=== PATIENT | male | born 1950 | race Caucasian/White ===

== ENCOUNTER → 2016-09-16 | Outpatient (CLI) | payer BC ==
[~2016-09-16] MED LIST: ACET-1256 PO; ADVIN25/60 INH; ALBU1AER9 INH; ATOR10TA88 PO; CHOL20005 PO; LISI-729 PO; METF750T PO; TEST5GEL TOP; TPRSR50 PO; TRIA75TA53 PO; VNTHFA/IN INH
[2016-09-16 12:58] LABS: BASO % 0.3 %; BASO ABS # 0.02 K/uL (0-0.2); COMPLETE YES; EOS % 5.6 %; HEMATOCRIT 50.3 % (42-52); IG% 0.2 %; LYMPH % 34.2 %; LYMPH ABS # 2.01 K/uL (1.2-3.4); MEAN CELL VOLUME 96.7 fL (80-100); MEAN CORPUSCULAR HEMOGLOBIN 32.7 pg (25-34); MEAN CORPUSCULAR HGB CONC 33.8 g/dl (32-36); MEAN PLATELET VOLUME 9.8 fL (7.4-10.4); MONO % 9.7 %; PLATELET COUNT 158 K/uL (130-400); WHITE BLOOD COUNT 5.88 K/uL (4.8-10.8)
[2016-09-16 13:30] LABS: ALT/SGPT 29 U/L (12-78); AST/SGOT 22 U/L (15-37); BLOOD UREA NITROGEN 15 mg/dl (7-18); BUN/CREATININE RATIO 13.8 (10-20); CALCIUM 8.7 mg/dl (8.5-10.1); CARBON DIOXIDE 27 mmol/L (21-32); CHLORIDE 105 mmol/L (98-107); GLUCOSE 144 mg/dl (70-99); POTASSIUM 4.2 mmol/L (3.5-5.1); SODIUM 139 mmol/L (136-145)
[2016-09-16 13:34] LABS: ALB/GLOB RATIO 0.8 (0.9-2); ALKALINE PHOSPHATASE 56 U/L (45-117); PROSTATE SPECIFIC ANTIGEN 0.264 ng/ml (0.000-4.000)
[2016-09-16 13:52] LABS: CALCIUM URINE 9.8 mg/dl
--- NOTE | 2016-09-23 06:14 | CODING QUERY MEDICAL NECESSITY ---
SUPPORTING DIAGNOSIS NEEDED A supporting diagnosis is required for the test/procedure performed on this patient in order for us to be reimbursed by the patient's insurance. Please provide a supporting diagnosis for the following test/procedure listed below next to the test name along with your signature. *If there is no additional diagnosis for this patient that would support the following test/procedure please document that below next to the test/procedure. Test(s)/Procedure(s) that require a supporting diagnosis: DOS 09/16 * PSA DIAGNOSIS: Provider Signature: Date: Thank you Noemi Julian Health Information Management Once completed, please kindly fax back to [phone] For questions please call [phone]
== END | disposition home or self-care (01) ==
LOC: C.LABPVFM 08:57
PROVIDERS: ATTEND Internal Medicine Endocrinology, Diabetes & Metabolism
DX: M81.0 Age-related osteoporosis without current pathological fracture (principal); E29.1 Testicular hypofunction; E55.9 Vitamin D deficiency, unspecified

== ENCOUNTER → 2016-09-22 | Outpatient (CLI) | payer BC | END | disposition home or self-care (01) | LOC: C.MAMM 14:18 | PROVIDERS: ATTEND Internal Medicine Endocrinology, Diabetes & Metabolism | DX: E55.9 Vitamin D deficiency, unspecified (principal); M81.0 Age-related osteoporosis without current pathological fracture ==

== ENCOUNTER → 2016-09-24 | Outpatient (CLI) | payer BC ==
--- NOTE | 2016-09-24 12:35 | MAMMOGRAPHY REPORT ---
MALE BILATERAL DIGITAL DIAGNOSTIC MAMMOGRAM WITH CAD: 09/24/2016 CLINICAL HISTORY: The patient reports that he is being seen for enlarged breasts, although he report s that his breast size is unchanged for years. He denies any palpable lumps, pain, or other complai nts. TECHNIQUE: Current study was also evaluated with a Computer Aided Detection (CAD) system. COMPARISON: Comparison is made to exams dated: 12/16/2006 and 12/16/2006. BREAST COMPOSITION: The tissue of both breasts is predominantly fatty. FINDINGS: There are no suspicious masses, calcifications, or areas of architectural distortion note d in either breast. Scattered bilateral benign-appearing calcifications are noted, predominantly de rmal in origin. The breasts are predominantly composed of fatty tissue (pseudo-gynecomastia), with a small amount of fibroglandular tissue seen within bilateral subareolar regions, consistent with gy necomastia. The appearance of both breasts is similar mammographically to the prior 2006 exam. IMPRESSION: ACR BI-RADS CATEGORY 2: BENIGN Bilateral breasts are predominantly composed of fatty tissue (pseudogynecomastia), with a small amou nt of fibroglandular tissue seen in bilateral subareolar regions (true gynecomastia). The appearanc e of both breasts is stable compared to the prior 2006 exam. There is no mammographic evidence of m alignancy. Recommend clinical follow-up. The patient has been verbally notified of the results. Approximately 10% of breast cancers are not detected with mammography. A negative mammographic repor t should not delay biopsy if a clinically suggestive mass is present. Irma Bundy M.D. ah/:09/24/2016 11:56:07 Franchise Sales Representative: Halle MCDOWELL(R)(M), [facility] letter sent: Normal 1/2 BI-RADS Code: ACR BI-RADS Category 2: Benign
== END | disposition home or self-care (01) ==
LOC: C.MAMM 10:54
PROVIDERS: ATTEND Internal Medicine Endocrinology, Diabetes & Metabolism
DX: N62 Hypertrophy of breast (principal)

== ENCOUNTER → 2017-02-02 | Outpatient (CLI) | payer BC ==
[2017-02-02 13:17] LABS: ALT/SGPT 35 U/L (12-78); AST/SGOT 35 U/L (15-37); BLOOD UREA NITROGEN 17 mg/dl (7-18); BUN/CREATININE RATIO 15.4 (10-20); CALCIUM 9.1 mg/dl (8.5-10.1); CARBON DIOXIDE 28 mmol/L (21-32); CHLORIDE 105 mmol/L (98-107); GLUCOSE 129 mg/dl (70-99); POTASSIUM 4.4 mmol/L (3.5-5.1); SODIUM 139 mmol/L (136-145)
[2017-02-02 13:21] LABS: ALB/GLOB RATIO 0.9 (0.9-2); ALKALINE PHOSPHATASE 63 U/L (45-117); CHOLESTEROL 153 mg/dl (0-200); CHOLESTEROL/HDL RATIO 3.1; HDL CHOLESTEROL 50 mg/dl; LDL CHOLESTEROL CALCULATED 82 mg/dl; TRIGLYCERIDES 106 mg/dl (0-150); VERY LOW DENSITY LIPOPROT CALC 21 mg/dl
[2017-02-02 13:29] LABS: ESTIMATED AVERAGE GLUCOSE 134 mg/dl; HA1C FLAG Normal (Normal)
[2017-02-02 13:40] LABS: RATIO 4.5 mcg/mg (0-30.0)
== END | disposition home or self-care (01) ==
LOC: C.LABPVFM 09:39
PROVIDERS: ATTEND Neuromusculoskeletal Medicine & OMM
DX: J45.909 Unspecified asthma, uncomplicated (principal); E29.1 Testicular hypofunction; E78.5 Hyperlipidemia, unspecified; I10 Essential (primary) hypertension; E55.9 Vitamin D deficiency, unspecified; E11.9 Type 2 diabetes mellitus without complications

== ENCOUNTER 2017-02-22 10:42 | Emergency (ER) | payer BC ==
[~2017-02-22] VITALS: Ht 170.2 cm; Wt 127.8 kg
[~2017-02-22 10:42] MED LIST changes: -ACET-1256 PO; -CHOL20005 PO; -METF750T PO; -TPRSR50 PO; -VNTHFA/IN INH
[2017-02-22 10:44] VITALS: TEMP 36.7; Ht 170.2 cm; Wt 127.8 kg
[2017-02-22] MEDS ORDERED: ACET-1256 PO (11:00)
--- NOTE | 2017-02-22 11:21 | EMERGENCY ROOM VISIT NOTE ---
ED Visit Note First contact with patient: 10:59 CHIEF COMPLAINT: Shoulder pain HISTORY OF PRESENT ILLNESS: This 66-year-old male patient presents to the emergency department, ambulatory, with his , complaining of pain in the left shoulder. The patient states he was clearing brush [place] campground yesterday, when he tripped over a tree limb. The patient states when he tripped , he fell and landed on his left shoulder. Patient states he fell forward, but landed right on the anterior, lateral shoulder. There is moderate limitation of motion of the arm at the shoulder joint because of the pain. The pain is moderate, constant and increases with motion of the hand and arm. The patient states the pain is burning/achy and 8/10. The patient has taken extra strength Tylenol, 1000 mg last night, and 1000 mg at 3 AM with moderate relief of the pain. No previous significant previous shoulder disease or injury. No numbness or tingling. no neck or back pain. The patient denies head injury. No chest pain or shortness of breath. No abdominal pain or nausea/vomiting. No cough. REVIEW OF SYSTEMS: A 6 system review of systems was performed with positives and pertinent negatives in the HPI. ALLERGIES: Aspirin MEDICATIONS: Albuterol, Advair, AndroGel, triamterene/HCTZ, atorvastatin, lisinopril PMH: Tension, asthma, hyperlipidemia, low testosterone SOCIAL HISTORY: The patient lives locally with his family. He denies drug, alcohol, tobacco use. PHYSICAL EXAM: Vital Signs: Reviewed nurse's notes, vital signs stable. GENERAL : This is a 66-year-old obese male, in no acute distress, but appears to be in pain, well-developed, well-nourished. MUSCULOSKELETAL: There is no deformity in the contour of the left shoulder and there are no jaylon deformities noted. There is no sulcus sign. There is tenderness over the left humeral head and proximal humerus, acromion and acromial end of the clavicle. The patient's range of motion is limited at the shoulder joint due to pain. Supraspinatus strength 3/5. No tenderness of the elbow, wrist, or hand. Sales Planning Manager strength 5/5. Radial pulse 2+. NECK: No tenderness to palpation over the cervical spine. Full active range of motion. HEART: Regular rate and rhythm without murmurs gallops or rubs. LUNGS: Clear to auscultation bilaterally without wheezes, rales or rhonchi. No accessory muscle use. No retractions. NEURO: The patient is alert and oriented to person, place, and time. Normal sensation to light and sharp touch. Capillary refill less than 2 seconds. RADIOLOGY: Left Shoulder X-Ray: DISCUSSION: The bones and joint spaces appear intact. There is no evidence of fracture, dislocation or bony disease. There is no evidence for soft tissue swelling. IMPRESSION: Negative study. EMERGENCY DEPARTMENT COURSE: I examined the patient. An X-ray of the left shoulder was reviewed by myself and radiologist and shows No acute fracture or dislocation. The patient was placed in an arm sling. Neurovascular status re- checked and in-tact. The patient was seen by Dr. Carty, who is in agreement with assessment and plan. The patient was discharged home in good condition. DIFFERENTIAL DIAGNOSIS: Shoulder dislocation, proximal humerus fracture, clavicle fracture, scapular fracture, rotator cuff strain, sprain, or tear, shoulder contusion, and others. DIAGNOSIS: Shoulder Contusion DISCHARGE INSTRUCTIONS & TREATMENT: ORTHOPEDIC INSTRUCTIONS: Ibuprofen(Motrin, Advil) may be used for fever or pain. Use 600mg every six hours as needed. Take with food. Avoid using more than 2400mg in a 24 hour period. Do not use 2400mg per day for more than three consecutive days without physician direction. Prolonged inappropriate use can lead to stomach upset or ulcers. (AND/OR) Acetaminophen(Tylenol) may be used for fever or pain. Use 1000mg every six to eight hours as needed. Avoid using more than 3000mg in a 24 hour period. Ice compresses for 20 minutes at a time four times daily for 2-3 days. Use the sling as instructed. Remove your arm from the sling 4-6 times a day and move all the joints around to keep them loose. Rest and elevate your injury. Return to the ER immediately for any numbness, tingling, severe pain, extreme swelling in the extremity or as needed. Call [facility], [phone], this week, to arrange follow up for your injury. Follow-up with your primary care physician in 2 to 3 days for a recheck of your current condition. Problem List Medical Problems: (1) Asthma Status: Chronic (2) History of nose surgery Status: Chronic Current/Historical Medications Scheduled Atorvastatin (Lipitor), 10 MG PO QAM Fluticasone Prop/Salmeterol (Advair Diskus 250/50 60 Dose), 1 PUFFS INH BID Lisinopril (Zestril), 5 MG PO QAM Testosterone (Androgel Pump), 40.5 MG TOP QAM Triamterene/Hctz (Maxzide 75MG/50MG), 1 TAB PO QAM Scheduled PRN Acetaminophen (Tylenol), 1,000 MG PO Q6 PRN for Pain Allergies Coded Allergies: Aspirin (Verified Allergy, Mild, BLEED, 02/22/17) Vital Signs Date Time Temp Pulse Resp B/P (MAP) Pulse Ox O2 Delivery O2 Flow Rate FiO2 02/22/17 12:08 80 20 145/88 99 02/22/17 10:44 36.7 82 16 126/63 96 Room Air Departure Information Impression Primary Impression: Shoulder contusion Dispostion Home / Self-Care Condition GOOD Referrals Trevon Arellano D.O. (PCP) Gordy Titpon MD Patient Instructions My [facility] Additional Instructions ORTHOPEDIC INSTRUCTIONS: Ibuprofen(Motrin, Advil) may be used for fever or pain. Use 600mg every six hours as needed. Take with food. Avoid using more than 2400mg in a 24 hour period. Do not use 2400mg per day for more than three consecutive days without physician direction. Prolonged inappropriate use can lead to stomach upset or ulcers. (AND/OR) Acetaminophen(Tylenol) may be used for fever or pain. Use 1000mg every six to eight hours as needed. Avoid using more than 3000mg in a 24 hour period. Ice compresses for 20 minutes at a time four times daily for 2-3 days. Use the sling as instructed. Remove your arm from the sling 4-6 times a day and move all the joints around to keep them loose. Rest and elevate your injury. Return to the ER immediately for any numbness, tingling, severe pain, extreme swelling in the extremity or as needed. Call [facility], [phone], this week, to arrange follow up for your injury. Follow-up with your primary care physician in 2 to 3 days for a recheck of your current condition. Problem Qualifiers Primary Impression: Shoulder contusion Encounter type: initial encounter Laterality: left Qualified Codes: S40.012A - Contusion of left shoulder, initial encounter
--- NOTE | 2017-02-22 11:37 | DIAGNOSTIC IMAGING REPORT ---
LEFT SHOULDER MIN 2 VIEWS ROUTINE CLINICAL HISTORY: left shoulder pain s/p fall on left side pain COMPARISON: None. DISCUSSION: The bones and joint spaces appear intact. There is no evidence of fracture, dislocation or bony disease. There is no evidence for soft tissue swelling. IMPRESSION: Negative study. The above report was generated using voice recognition software. It may contain grammatical, syntax or spelling errors. Electronically signed by: Robert Varghese M.D. 02/22/2017 11:35 AM Dictated Date/Time: 02/22/2017 11:35 AM
[2017-02-22 12:08] VITALS: BP 145/88; PULSE 80; O2SAT 99
--- NOTE | 2017-02-24 15:48 | EMERGENCY ROOM VISIT NOTE ---
ED Visit Note First contact with patient: 10:59 HPI: Left shoulder pain after fall. PE: AFVSS, NAD NC/AT RRR, no murmurs CTAB Abd soft NT/ND Ext: no edema, erythema, Left shoulder with ttp over AC joint. Active ROM limited 2/2 pain. Passive ROM less painful. Axillary nerve intact. Distal pms intact. Neuro: grossly intact Plan: Xray negative. Likely rotator cuff. Sling and ortho f/u. I reviewed the patient's past medical history, medications, and visit nursing notes. I discussed the case with the physician endodontic assistant, examined the patient, and agree with the findings and plan as documented in the physician assistants note. Problem List Medical Problems: (1) Asthma Status: Chronic (2) History of nose surgery Status: Chronic Current/Historical Medications Scheduled Atorvastatin (Lipitor), 10 MG PO QAM Fluticasone Prop/Salmeterol (Advair Diskus 250/50 60 Dose), 1 PUFFS INH BID Lisinopril (Zestril), 5 MG PO QAM Testosterone (Androgel Pump), 40.5 MG TOP QAM Triamterene/Hctz (Maxzide 75MG/50MG), 1 TAB PO QAM Scheduled PRN Acetaminophen (Tylenol), 1,000 MG PO Q6 PRN for Pain Allergies Coded Allergies: Aspirin (Verified Allergy, Mild, BLEED, 02/22/17) Vital Signs Date Time Temp Pulse Resp B/P (MAP) Pulse Ox O2 Delivery O2 Flow Rate FiO2 02/22/17 12:08 80 20 145/88 99 02/22/17 10:44 36.7 82 16 126/63 96 Room Air Departure Information Impression Primary Impression: Shoulder contusion Dispostion Home / Self-Care Condition GOOD Referrals Trevon Arellano D.O. (PCP) Gordy Tipton MD Forms HOME CARE DOCUMENTATION FORM, IMPORTANT VISIT INFORMATION Patient Instructions My [facility] Additional Instructions ORTHOPEDIC INSTRUCTIONS: Ibuprofen(Motrin, Advil) may be used for fever or pain. Use 600mg every six hours as needed. Take with food. Avoid using more than 2400mg in a 24 hour period. Do not use 2400mg per day for more than three consecutive days without physician direction. Prolonged inappropriate use can lead to stomach upset or ulcers. (AND/OR) Acetaminophen(Tylenol) may be used for fever or pain. Use 1000mg every six to eight hours as needed. Avoid using more than 3000mg in a 24 hour period. Ice compresses for 20 minutes at a time four times daily for 2-3 days. Use the sling as instructed. Remove your arm from the sling 4-6 times a day and move all the joints around to keep them loose. Rest and elevate your injury. Return to the ER immediately for any numbness, tingling, severe pain, extreme swelling in the extremity or as needed. Call [facility], [phone], this week, to arrange follow up for your injury. Follow-up with your primary care physician in 2 to 3 days for a recheck of your current condition.
[2017-03-24] MEDS ORDERED: VNTHFA/IN INH (08:59)
[2017-03-24] MEDS ORDERED: CHOL20005 PO (09:00)
[2017-03-24] MEDS ORDERED: METF750T PO (09:03)
[2017-04-27] MEDS ORDERED: TPRSR50 PO (10:19)
== END 2017-02-22 12:10 | disposition home or self-care (01) ==
LOC: C.EDB 10:44 → C.EDD 12:10
DX: S40.012A Contusion of left shoulder, initial encounter (principal); W01.0XXA Fall on same level from slipping, tripping and stumbling without subsequent striking against object, initial encounter; E78.5 Hyperlipidemia, unspecified; J45.909 Unspecified asthma, uncomplicated; Z79.899 Other long term (current) drug therapy; Z88.6 Allergy status to analgesic agent; Z98.890 Other specified postprocedural states

== ENCOUNTER → 2017-03-12 | Outpatient (CLI) | payer BC ==
[~2017-03-12] MED LIST changes: +ACET-1256 PO; -ALBU1AER9 INH; +CHOL20005 PO; +METF750T PO; +TPRSR50 PO; +VNTHFA/IN INH
--- NOTE | 2017-03-12 12:04 | DIAGNOSTIC IMAGING REPORT ---
LEFT SHOULDER MRI HISTORY: Left shoulder pain. TECHNIQUE: Multiplanar multisequence MRI of the left shoulder was performed without contrast. COMPARISON STUDY: Left shoulder 02/22/2017. FINDINGS: AC joint: Moderate AC joint arthrosis demonstrated by joint space narrowing and large marginal osteophytes. Rotator cuff: Complete full-thickness tears of the supraspinatus and infraspinatus tendons which demonstrate up to 2.5 cm of retraction. This results in the fluid within the subacromial/subdeltoid space. Thinning of the subscapularis tendon consistent with a partial tear. The teres minor tendon appears intact. There is mild atrophy of the supraspinatus and infraspinatus muscles. Labrum: Abnormal signal within the superior labrum consistent with a SLAP tear. Biceps tendon: Mild thickening and increased signal. This is consistent with a tendinopathy. There is mild medial deviation proximally which is likely due to the partial subscapularis tendon/transverse humeral ligament tear. Bones: No fracture or dislocation. Cartilage: Mild cartilage thinning within the humeral head. The glenoid cartilage appears intact. Miscellaneous: Trace joint effusion. There is edema and irregularity involving a few of the inferior glenohumeral ligament fibers posteriorly. This is consistent with a partial tear IMPRESSION: 1. Complete full-thickness tears with retraction of the supraspinatus and infraspinatus tendons. 2. SLAP tear. 3. Edema and irregularity involving a few of the inferior glenohumeral ligament fibers posteriorly. This is consistent with a partial tear (HAGL). 4. Proximal biceps tendinopathy. This also mild medial deviation of the proximal biceps tendon suggestive of partial tear of the subscapularis tendon/transverse humeral ligament. Electronically signed by: Corona Cabrera M.D. 03/12/2017 12:03 PM Dictated Date/Time: 03/12/2017 11:54 AM
== END | disposition home or self-care (01) ==
LOC: C.MRI 09:20
PROVIDERS: ATTEND Orthopaedic Surgery Sports Medicine
DX: M75.102 Unspecified rotator cuff tear or rupture of left shoulder, not specified as traumatic (principal); S43.432A Superior glenoid labrum lesion of left shoulder, initial encounter; X58.XXXA Exposure to other specified factors, initial encounter

== ENCOUNTER → 2017-04-23 | Outpatient (CLI) | payer BC ==
[2017-04-23 12:01] LABS: HEMATOCRIT 44.9 % (42-52); MEAN CELL VOLUME 96.1 fL (80-100); MEAN CORPUSCULAR HGB CONC 34.3 g/dl (32-36); MEAN PLATELET VOLUME 9.5 fL (7.4-10.4); PLATELET COUNT 154 K/uL (130-400); RED BLOOD COUNT 4.67 M/uL (4.7-6.1); WHITE BLOOD COUNT 5.62 K/uL (4.8-10.8)
[2017-04-23 12:11] LABS: INR 1.1 (0.9-1.1); PROTHROMBIN TIME (PATIENT) 11.6 SECONDS (9.0-12.0)
[2017-04-23 12:36] LABS: BLOOD UREA NITROGEN 17 mg/dl (7-18); BUN/CREATININE RATIO 15.8 (10-20); CALCIUM 9.6 mg/dl (8.5-10.1); CARBON DIOXIDE 26 mmol/L (21-32); CHLORIDE 105 mmol/L (98-107); GLUCOSE 132 mg/dl (70-99); POTASSIUM 4.5 mmol/L (3.5-5.1); SODIUM 138 mmol/L (136-145)
== END | disposition home or self-care (01) ==
LOC: C.LABPVFM 08:19
PROVIDERS: ATTEND Internal Medicine Cardiovascular Disease
DX: I42.9 Cardiomyopathy, unspecified (principal); R06.09 Other forms of dyspnea

== ENCOUNTER → 2017-04-27 | Day surgery (SDC) | payer BC ==
[~2017-04-27] VITALS: Ht 170.2 cm; Wt 128.0 kg
[~2017-04-27] MED LIST changes: +ACETAMINOPHEN 325 MG TAB PO PRN; +FENTANYL CITRATE INJ 50 MCG/1 ML 2 ML VIAL ONE; +HEPARIN SOD (PORCINE) 1000 UNIT/ML 10 ML VIAL ONE; +MIDAZOLAM HCL 1 MG/ML 2ML VIAL ONE; +NITROGLYCERIN/D5W 100MCG/ML 20ML SYR ONE; +NiCARDipine HCL INJ 2.5 MG/ML 10 ML AMP ONE; +ONDANSETRON INJ 2 MG/ML 2 ML VIAL IV PRN; +SODIUM CHLORIDE 0.9% 1000ML 1,000 ML IV SCH; +SODIUM CHLORIDE 0.9% 1000ML 250 ML IV PRN
[2017-04-27 07:10] VITALS: Ht 170.2 cm; Wt 128.0 kg
[2017-04-27 07:11] VITALS: BP 147/75; PULSE 83; TEMP 36.8; O2SAT 96
--- NOTE | 2017-04-27 07:42 | History & Physical Bridge Note ---
H&P Re-Evaluation Bridge Note: I have examined the patient, reviewed the History & Physical and in the interval since the performance of the History & Physical I have noted the following changes of clinical significance: No changes noted
--- NOTE | 2017-04-27 07:42 | Procedure Note ---
Pre-Mod Sedation Assessment General Date of Moderate Sedation: Apr 27, 2017. Vital Signs: Vital Signs Past 12 Hours Date Time Temp Pulse Resp B/P (MAP) Pulse Ox O2 Delivery O2 Flow Rate FiO2 04/27/17 07:11 36.8 83 18 147/75 96 Review Cardiovascular: regular rate, rhythm Abdomen: non tender, soft Lungs: lungs clear Pre-Sedation Airway Assessment Oral Cavity: Dentures Short Thick Neck: Yes Hx of Sleep Apnea: No Smoking Status: Never Smoker Procedure Planning Contraindications-for Mod Sed: None Yes Notes The planned sedation has been discussed with the patient and consent obtained. I have identified the patient, determined the appropriateness of sedation and have assessed the patient immediately prior to the procedure. All medicine(s) and interventions are by my order.
--- NOTE | 2017-04-27 09:49 | Procedure Note ---
Post-Mod Sedation Assessment General Date of Moderate Sedation Apr 27, 2017. Vital Signs: Vital Signs Past 12 Hours Date Time Temp Pulse Resp B/P (MAP) Pulse Ox O2 Delivery O2 Flow Rate FiO2 04/27/17 09:40 16 Room Air 04/27/17 09:35 16 Room Air 04/27/17 09:30 16 Room Air 04/27/17 09:25 70 16 153/93 (113) 96 Room Air 04/27/17 07:11 36.8 83 18 147/75 96 Review - Discharge Criteria Vital Signs Stable: Yes Alert/Oriented/Conversant: Yes Returned to Baseline Mental St: Yes Nausea Absent/Minimal: Yes Pain/Discomfort/Absent/Minimal: Yes Normal/Baseline Respirations: Yes Active Bleeding?: No
[2017-04-27 09:53] LABS: ISTAT ARTERIAL BLOOD GAS HCO3 28 meq/L (19-24); ISTAT ARTERIAL BLOOD GAS PCO2 51 mmHg (35-46); ISTAT ARTERIAL BLOOD GAS PO2 56 mmHg (80-95); ISTAT ARTERIAL BLOOD GAS pH 7.35 (7.35-7.45); ISTAT CARBON DIOXIDE 30 mEq/l (24-31)
[2017-04-27 09:53] LABS: ISTAT ARTERIAL BLOOD GAS HCO3 29 meq/L (19-24); ISTAT ARTERIAL BLOOD GAS PCO2 53 mmHg (35-46); ISTAT ARTERIAL BLOOD GAS PO2 39 mmHg (80-95); ISTAT ARTERIAL BLOOD GAS pH 7.35 (7.35-7.45); ISTAT CARBON DIOXIDE 31 mEq/l (24-31)
--- NOTE | 2017-04-27 10:11 | Cardiac Catheterization ---
Procedure Note Procedure Date Apr 27, 2017. Pre-Procedure Diagnosis Cardiomyopathy AUC Score 7 Post-Procedure Diagnosis Normal Coronary Arteries, Elevated Intracardiac Pressures Procedure(s) Performed Coronary Angiography, Left Heart Cath, Right Heart Cath, Aortography Supervisor Veneer Dr. Warren Senior Compliance Analyst(s) Bravo Estimated Blood Loss < 25 ml Medication(s) Fentanyl, Heparin, Nicardipine, Versed, Lidocaine 1% Summary of Findings Coronary angiography: 1. Left main coronary artery: The LMCA is short in length. No significant CAD visualized. 2. Left anterior descending: The LAD is a very large caliber vessel that wraps around the apex. It gives rise to a medium caliber diagonal vessel. No CAD noted within the LAD system. 3. Circumflex: The circumflex is large caliber and dominant. There is a very large caliber OM1 with lateral branch. There is a very large circumflex PDA. Medium caliber posterior lateral branch. No CAD noted within the circumflex or PDA system. 4. Ramus intermedius: Small to medium caliber ramus intermedius without CAD. 5. 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 Selective coronary angiography was not performed. Non dominant vessel. RCA was visualized during aortography. JR4, AR2, a L2 catheters were unsuccessful in engaging the RCA. Aortography: 1. Aortography (supravalvular) was performed to identify the right coronary artery. The RCA appeared to originate from the left coronary cusp, superiorly. There is no aortic regurgitation. No aortic aneurysm visualized. No evidence of aortic dissection. Right heart catheterization: 1. Moderately elevated pulmonary capillary wedge pressure. PCWP V-wave 23; mean 20mmHg. 2. Mild pulmonary hypertension. PA pressure 45/25 with a mean of 31mmHg. 3. Mildly elevated right ventricular pressure. RV pressure 45/8mmHg. 4. Mildly elevated right atrial pressure. Right atrial A-wave 12; V-wave 14; mean 12mmHg. 5. Cardiac output via thermodilution 9.4 L/min, with a cardiac index of 5.7 L/ min/m2. Estimated Ron cardiac output 4.2 L/min with a cardiac index of 2.5 L/ min/m2. Left heart catheterization: 1. Moderately elevated LVEDP; LVEDP 20mmHg. 2. No aortic stenosis. 3. Left ventriculography was not performed. Procedural notes: 1. Right heart catheterization was performed via the right brachiocephalic vein. 2. Left heart catheterization was performed via the right radial artery without known complication. 3. Despite JR4, a L2, AR2 diagnostic catheters, selective coronary angiography of the non dominant anomalous right coronary artery was not performed. Due to the fact that this small non dominant vessel would not be the culprit of his cardiomyopathy and in an attempt to limit radiation and contrast use, the procedure was ended without further attempts. Sedation start time: 8:24 a.m. Sedation end time: 9:25 a.m.: Impression: 1. No coronary artery disease noted in visualized vessels. 2. 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 3. Mildly to moderately elevated filling pressures. 4. No aortic stenosis or aortic regurgitation. 5. Nonischemic cardiomyopathy. Plan: 1. Optimize medical therapy. Hemodynamics Rest Ao: 126/69 Final Ao: 151/79 LV: 142/12; LVEDP 20 mmHg Recommendations Medical therapy and/or Counseling Specimens None Radiation Exposure (mGy) 3989 mGy; Fluoro time 20.2 min. Contrast (mls) 180 ml Visipaque Procedural Complication(s) None Disposition Support Group Manager Holding/Recovery ACC Data Cardiac Status Clinical evaluation leading to the procedure CAD Presntation: No Sxs, no angina Anginal Classification: No symptoms Heart Failure: NYHA Class: CCS II Cardiogenic Shock w/in 24Hrs: No Cardiac Arrest w/in 24Hrs: No Imaging studies past 6 months: Yes (echo) Stress studies past 6 months: No Standard Exercise Stress Test: No Stress Echocardiogram: No Stress Testing w/SPECT MPI: No Cardiac CTA: No Coronary Anatomy Dominant: Left Left Main (% Stenosis): Normal LAD (% Stenosis): Normal D1 (% Stenosis): Normal Circumflex (% Stenosis): Normal OM1 (% Stenosis): Normal L PL1 (% Stenosis): Normal L PDA (% Stenosis): Normal RCA (% Stenosis): Normal (not selectively engaged. RCA is anamolous and is not occluded.) Ramus (% Stenosis): Normal Left Ventricular Angiography EF (%): n/a Aortography Aortic Regurgitation: None (n/a) Diagnostic Physician's Name: Bernabe Warren MD Status: Elective Closure Device Percutaneous Entry Location: Radial Closure Device: Radial Band Recommendations: Medical therapy and/or Counseling
--- NOTE | 2017-04-27 10:24 | Discharge Instructions ---
Discharge Instructions Date of Service Apr 27, 2017. Visit Reason for Visit: Cardiac catheterization Discharge Discharge Diagnosis / Problem: Non-ischemic cardiomyopathy. Anomalous right coronary artery. Discharge Goals Goal(s): Diagnostic testing Activity Recommendations Activity Limitations: per Instructions/Follow-up section Anesthesia . Post Anesthesia Instructions: If you have had General Anesthesia or IV Sedation: * Do not drive today. * Resume driving when surgeon permits. * Do not make important decisions or sign legal documents today. * Call surgeon for: 1. Temperature elevations greater than 101 degrees F. 2. Uncontrollable pain. 3. Excessive bleeding. 4. Persistent nausea and vomiting. 5. Medication intolerance (nausea, vomiting or rash). * For nausea and vomiting use only clear liquids such as: tea, soda, bouillon until nausea subsides, then gradually increase diet as tolerated. * If you have any concerns or questions, call your surgeon's office. If physician is unavailable and it is an emergency, call 911 or go to the nearest emergency room. . Instructions / Follow-Up Instructions / Follow-Up Follow up: 1. Keep scheduled appointment later this month to adjust medications. ACTIVITY RECOMMENDATIONS: Excess manipulation of the wrist should be avoided for the next 24-48 hours. * No lifting over 2 pounds (approximately a 1/2 gallon of milk) with the utilized arm for 24 hours. * No strenuous activity such as bowling or tennis for 3 days. * Keep the site of the procedure covered with a bandage for 24 hours. *You may shower the day after the procedure. Do not take a tub bath or submerge the puncture site in water for the next 3 days. *Do not operate any motorized equipment for 3 days. SPECIAL CARE INSTRUCTIONS: The site may be slightly bruised and sore following your procedure. Should any of the following occur, contact the Dr. who performed your procedure. 1. Redness/inflammation, swelling, chills, or fever, or colored drainage at procedure site within 3-7 days after your procedure. 2. Coldness, discoloration, ongoing numbness, severe pain, or swelling. Expect mild tingling of hand and tenderness at the puncture site for up to three days. If this persists beyond three days, or other symptoms develop, notify the Dr. who performed your procedure. BLEEDING: If the procedure site on your wrist begins to bleed, do not panic 1. Place 1 or 2 fingers firmly just slightly above the insertion site to stop the bleeding. You may be able to feel your pulse as you hold pressure. 2. Lift your finger after 5 minutes to see if the bleeding has stopped. 3. Once the bleeding has stopped, gently wipe the wrist area clean with a bandage. * If the bleeding from your wrist does not stop after 10 minutes, or if there is a large amount of bleeding or spurting, call 911 (do not drive yourself to the hospital). SKIN IRRITATION: * You may experience some redness and/or swelling in the area where radiation was administered. If any skin irritation occurs, please contact your family physician. FOLLOW UP VISIT: Keep any scheduled doctor appointments. Diet Recommendations Recommended Home Diet: low sodium, diabetes diet Pending Studies Studies pending at discharge: no Medical Emergencies . Who to Call and When: Medical Emergencies: If at any time you feel your situation is an emergency, please call 911 immediately. . Non-Emergent Contact Non-Emergency issues call your: Estate Planner . . "Provider Documentation" section prepared by Bernabe Mack. .
[2017-04-27 11:15] VITALS: BP 130/80; PULSE 80; O2SAT 94
== END | disposition home or self-care (01) ==
LOC: C.CATH 07:01
PROVIDERS: ATTEND Internal Medicine Cardiovascular Disease
DX: I42.9 Cardiomyopathy, unspecified (principal); Q24.5 Malformation of coronary vessels; I10 Essential (primary) hypertension; E78.5 Hyperlipidemia, unspecified; R06.09 Other forms of dyspnea; J45.909 Unspecified asthma, uncomplicated; E11.9 Type 2 diabetes mellitus without complications; M81.0 Age-related osteoporosis without current pathological fracture; Z79.82 Long term (current) use of aspirin; Z86.718 Personal history of other venous thrombosis and embolism; Z85.828 Personal history of other malignant neoplasm of skin; Z80.0 Family history of malignant neoplasm of digestive organs; Z82.49 Family history of ischemic heart disease and other diseases of the circulatory system

== ENCOUNTER → 2017-05-25 | Outpatient (CLI) | payer BC ==
[~2017-05-25] MED LIST changes: -ACETAMINOPHEN 325 MG TAB PO PRN; +ATOR10TA82 PO; -ATOR10TA88 PO; -FENTANYL CITRATE INJ 50 MCG/1 ML 2 ML VIAL ONE; -HEPARIN SOD (PORCINE) 1000 UNIT/ML 10 ML VIAL ONE; -MIDAZOLAM HCL 1 MG/ML 2ML VIAL ONE; -NITROGLYCERIN/D5W 100MCG/ML 20ML SYR ONE; -NiCARDipine HCL INJ 2.5 MG/ML 10 ML AMP ONE; -ONDANSETRON INJ 2 MG/ML 2 ML VIAL IV PRN; -SODIUM CHLORIDE 0.9% 1000ML 1,000 ML IV SCH; -SODIUM CHLORIDE 0.9% 1000ML 250 ML IV PRN
[2017-05-25 13:08] LABS: FERRITIN 267.5 ng/ml (8.0-388.0); THYROID STIMULATING HORMONE 0.935 uIu/ml (0.300-4.500)
[2017-05-25 13:17] LABS: BLOOD UREA NITROGEN 20 mg/dl (7-18); CARBON DIOXIDE 26 mmol/L (21-32); CHLORIDE 105 mmol/L (98-107); CREATININE 1.13 mg/dl (0.60-1.40); GLUCOSE 124 mg/dl (70-99); POTASSIUM 4.5 mmol/L (3.5-5.1); SODIUM 138 mmol/L (136-145)
[2017-05-26 17:41] LABS: ALBUMIN 4.1 G/DL (3.8-4.8); GAMMA GLOBULIN 1.2 G/DL (0.8-1.7); TOTAL PROTEIN 7.4 G/DL (6.2-8.3)
[2017-05-27 05:38] LABS: ALBUMIN % 84.23 %; ALPHA-2-GLOBULIN % 3.61 %; BETA GLOBULIN % 9.54 %; CREATININE UR 164 MG/DL (20-370); GAMMA GLOBULIN % 2.17 %
== END | disposition home or self-care (01) ==
LOC: C.LABPVFM 09:45
PROVIDERS: ATTEND Physician Assistant
DX: I42.9 Cardiomyopathy, unspecified (principal)

== ENCOUNTER → 2017-06-29 | Outpatient (CLI) | payer BC ==
[2017-06-29 13:43] LABS: BLOOD UREA NITROGEN 20 mg/dl (7-18); BUN/CREATININE RATIO 17.3 (10-20); CALCIUM 9.3 mg/dl (8.5-10.1); CARBON DIOXIDE 28 mmol/L (21-32); CHLORIDE 103 mmol/L (98-107); CREATININE 1.17 mg/dl (0.60-1.40); GLUCOSE 121 mg/dl (70-99); POTASSIUM 4.7 mmol/L (3.5-5.1); SODIUM 135 mmol/L (136-145)
== END | disposition home or self-care (01) ==
LOC: C.LABPVFM 08:24
PROVIDERS: ATTEND Physician Assistant
DX: I42.9 Cardiomyopathy, unspecified (principal)

== ENCOUNTER → 2017-07-14 | Day surgery (SDC) | payer BC ==
--- NOTE | 2017-06-30 17:48 | HISTORY & PHYSICAL EXAMINATION ---
DATE OF ADMISSION: 07/14/2017 CHIEF COMPLAINT: Left shoulder pain. HISTORY OF PRESENT ILLNESS: This 66-year-old male presents to clinic today for preoperative history and physical. He states he injured his left shoulder in January of this year after falling on the left shoulder while pulling brush [place]. The patient states that he has very limited range of motion about the left shoulder and it affects his daily life. The patient had an MRI of the shoulder that confirmed the diagnosis of a rotator cuff tear. He states that the pain is 7/10 during today's visit, but denies any numbness or tingling. No new injury since the initial one occurred. PAST MEDICAL HISTORY: Diabetes, hypertension, hyperlipidemia, obesity, gastroesophageal reflux disease and asthma. PAST SURGICAL HISTORY: Nasal surgery and appendectomy. FAMILY HISTORY: Noncontributory. SOCIAL HISTORY: The patient denies alcohol, tobacco or illicit drug use. CURRENT MEDICATIONS TAKEN: Advair Diskus 250 mcg/50 mcg inhaler 1 puff twice daily, AndroGel pump 20.25 mg/actuation 1.62% transdermal gel 2 pumps in the a.m., aspirin 81 mg oral delayed release tablet 1 tab daily, atorvastatin 10 mg oral tablet 1 tab daily, hydrochlorothiazide/triamterene 50 mg/75 mg oral tablet 1 tab daily, lisinopril 20 mg oral tablet 1 tab daily, metformin 750 mg oral tablet extended release 1 tab daily, metoprolol succinate extended release 50 mg oral tablet 1 tab daily, ProAir HFA 90 mcg/INH inhalation aerosol 2 puffs 4 times daily as needed for wheezing, and vitamin D3 at 2000 international units daily. ALLERGIES: THE PATIENT HAS MEDICATION ALLERGIES TO ASPIRIN. PHYSICAL EXAMINATION: SKIN: The patient's skin is normal in appearance. No acute skin lesions or discharge. EYES: Pupils are equal and reactive to light and accommodation. Extraocular movements are intact. THROAT: Posterior pharynx is clear without obvious edema, erythema or exudate. CARDIOVASCULAR: The patient has regular rate and rhythm with a grade 2/6 holosystolic murmur heard best over the right upper sternal border. LUNGS: Auscultation of lungs reveals clear breath sounds throughout with no wheezing, rales or rhonchi. ABDOMEN: Obese, nondistended, and nontender with normoactive bowel sounds. EXTREMITIES: Right shoulder: The patient is able to forward flex approximately 10 degrees and abduct to 45 degrees with external rotation to 15 degrees. I was unable to perform specific provocative testing of the left shoulder due to limited range of motion. I was able to perform Asencio-Hernesto impingement test, which was positive. The patient has mild tenderness over the longhead of the biceps tendon, AC joint. He is unable to perform subscapularis liftoff test. He is able to reach terminal flexion and extension of his left elbow. He has full range of motion of his left wrist. He is neurovascularly intact in the left upper extremity. His peripheral pulses are palpable and his capillary refill is brisk. NEUROLOGICAL: Cranial nerves II through XII intact. No motor or sensory deficit. PSYCHOLOGICAL AND GENERAL: The patient is alert and oriented x3, proper grooming and hygiene. Operations Lead strength is equal bilaterally at 5/5. ASSESSMENT: Left rotator cuff tear; impingement; long head of the biceps tendinosis; and acromioclavicular joint osteoarthritis. PROCEDURE: Arthroscopic left shoulder rotator cuff/labral repair versus debridement, biceps tenotomy versus tenodesis, subacromial decompression, examination under anesthesia and open distal clavicle excision. PLAN: The patient is scheduled to undergo these procedures with Dr. Gordy Tipton from [facility] on 07/14/2017. Risks and complications of surgery such as infection, bleeding, pain, scarring, nerve and blood vessel damage, weakness, wound problems, stiffness, incomplete relief of symptoms, heart attack, stroke, , hardware failure, fracture, recurrent tear, and arthritis were explained to the patient by Dr. Tipton in February. The patient understands and agrees. Written consent to perform the procedure was obtained at that time. The patient has already obtained a CBC, electrolyte panel, EKG, BUN, creatinine and preoperative clearance from his PCP, Dr. Arellano and his social services manager, Dr. Warren. The patient states that he has prescription for [place] at home and he will bring it with him on the day of surgery. He was advised that he will be done as an outpatient at the medical center due to preexisting health conditions and he will do physical therapy in our clinic in 2-3 times a week for up to 8 weeks. The patient verbalized understanding of all information provided at today's visit and thanked us for the care he has received and states if he has questions or concerns that should arise prior to the surgery date, he will contact the clinic. CECILIA
[2017-07-07 08:53] VITALS: Ht 170.2 cm; Wt 127.3 kg
[2017-07-08 11:58] LABS: BASO % 0.3 %; BASO ABS # 0.02 K/uL (0-0.2); COMPLETE YES; EOS % 6.3 %; HEMATOCRIT 43.2 % (42-52); IG% 0.3 %; LYMPH % 30.5 %; LYMPH ABS # 1.93 K/uL (1.2-3.4); MEAN CELL VOLUME 99.5 fL (80-100); MEAN CORPUSCULAR HEMOGLOBIN 33.6 pg (25-34); MEAN CORPUSCULAR HGB CONC 33.8 g/dl (32-36); MEAN PLATELET VOLUME 9.8 fL (7.4-10.4); MONO % 8.2 %; NEUT % 54.4 %; PLATELET COUNT 159 K/uL (130-400); RED BLOOD COUNT 4.34 M/uL (4.7-6.1); WHITE BLOOD COUNT 6.33 K/uL (4.8-10.8)
[2017-07-08 12:17] LABS: BUN/CREATININE RATIO 17.1 (10-20); CALCIUM 9.1 mg/dl (8.5-10.1); CREATININE 1.3 mg/dl (0.60-1.40); POTASSIUM 4.7 mmol/L (3.5-5.1)
[2017-07-08 12:20] LABS: ALB/GLOB RATIO 0.9 (0.9-2)
[~2017-07-14] VITALS: Ht 170.2 cm; Wt 127.3 kg
[~2017-07-14] MED LIST changes: -ACET-1256 PO; +ALBUT/IPRATROP 3MG/0.5MG NEB 3 ML VIAL INH STA; +ASPI81TA28 PO; +ATROPINE SULFATE 0.1 MG/ML 5ML SYR IV PRN; +BUPIVACAINE 0.5 % 5 MG/1 ML MPF 30ML VIAL ONE; +CEFAZOLIN 3000MG IV PUSH 15 ML IV SCH; +EpHEDrine SULFATE INJ 50 MG/ML AMP IV PRN; +EpINEphrine HCL INJ 1 MG/ML 5ML SYRINGE ONE; +FENTANYL CITRATE INJ 50 MCG/1 ML 2 ML VIAL ONE; +HYDROmorphone INJ 1 MG/ML SYR ONE; +HYDROmorphone INJ 2 MG/ML SYR/VIAL IV PRN; +LACTATED RINGER'S 1000ML 1,000 ML IV SCH; +LIDOCAINE HCL 2% 2 ML VIAL (20MG/ML) ONE; +LIDOCAINE/EPINEPHRINE 1% 20 ML VIAL ONE; -LISI-729 PO; +LISI-794 PO; +METO-217 PO; +MIDAZOLAM HCL 1 MG/ML 2ML VIAL ONE; +MoRPHine SULFATE 2 MG/ML CARP IV PRN; +MoRPHine SULFATE 4 MG/ML 1 ML CARP\\VIAL IV PRN; +NURSING VERBAL MED ORDER ONE; +ONDANSETRON INJ 2 MG/ML 2 ML VIAL IV PRN; +ONDANSETRON INJ 2 MG/ML 2 ML VIAL ONE; +OXYC-57 PO; +OXYCODONE/ACETAMINOPHEN 5-325 TAB PO PRN; +PHENYLEPHRINE 100MCG/ML 5ML SYR IV PRN; +PROPOFOL IV EMULSION 10 MG/ML 20 ML VIAL IV ONE; +ROPIVACAINE 0.5% 5 MG/ML 30 ML VIAL ONE; +SODIUM CHLORIDE 0.9% 1000ML IV SCH; +SODIUM CHLORIDE 0.9% PF 50 ML VIAL ONE; -TPRSR50 PO
[2017-07-14 06:10] VITALS: BP 115/57; PULSE 66; TEMP 36.3; O2SAT 95
--- NOTE | 2017-07-14 11:15 | [facility] Post Operative Brief Note ---
Immediate Operative Summary Operative Date Jul 14, 2017. Pre-Operative Diagnosis Left rotator cuff tear; impingement; long head of the biceps tendinosis; and acromioclavicular joint osteoarthritis. Post-Operative Diagnosis Left rotator cuff tear; impingement; long head of the biceps tendinosis; and acromioclavicular joint osteoarthritis, Synovitis & Bursitis. Procedure(s) Performed 1) Arthroscopic Left Shoulder Rotator Cuff Repair. 2) Extensive Labral Debridement. 3) Biceps Tenotomy. 4) Open Distal Clavicle Excision. 5) Exam Under Anesthesia. Surgeon Dr. Gordy Tipton Home Care Chaplain Surgeon(s) Marilyn Clay PA-C Estimated Blood Loss 15ml Findings As above Fluids (cc crystalloids) 1600 Specimens Permanent Solution: A. Distal Clavicle Drains n/a Anesthesia GET + Interscalene N block Complication(s) None Disposition Recovery Room / PACU (Stable)
--- NOTE | 2017-07-14 11:18 | Discharge Instructions ---
Discharge Instructions Date of Service Jul 14, 2017. Admission Reason for Admission: Left Shoulder Rtc Tear, Impingement, Long-Head Bic Discharge Discharge Diagnosis / Problem: Status post Left shoulder Rotator cuff repair Discharge Goals Goal(s): Decrease discomfort, Improve function, Increase independence Activity Recommendations Activity Limitations: per Instructions/Follow-up section May Resume Sexual Activity: when tolerated Shower/Bathe: may shower/bathe in 3 days Driving or Machine Use: Not while on Narcotics or while wearing the sling (min 6 weeks) . Instructions / Follow-Up Instructions / Follow-Up Dr. Tipton in 10-15 days. PT in 2-3 days. Current Hospital Diet Patient's current hospital diet: Discharge Diet Recommended Diet: AHA Diet (Heart Healthy) Procedures Procedures Performed: 1) Arthroscopic Left Shoulder Rotator Cuff Repair. 2) Extensive Labral Debridement. 3) Biceps Tenotomy. 4) Open Distal Clavicle Excision. 5) Exam Under Anesthesia. Pending Studies Studies pending at discharge: no Medical Emergencies . Who to Call and When: Medical Emergencies: If at any time you feel your situation is an emergency, please call 911 immediately. . Non-Emergent Contact Non-Emergency issues call your: Surgeon Call Non-Emergent contact if: temperature is above 101.5, your pain is not controlled, wound has increased drainage, wound has increased redness . "Provider Documentation" section prepared by Gordy Tipton. . VTE Core Measure Inpt VTE Proph given/why not?: Other Anticoagulation (Asprin), T.E.D. Stockings (2 weeks)
--- NOTE | 2017-07-14 11:20 | [facility] Operative Report ---
Operative Report Operative Date Jul 14, 2017. Pre-Operative Diagnosis Left rotator cuff tear; impingement; long head of the biceps tendinosis; and acromioclavicular joint osteoarthritis. Post-Operative Diagnosis Left rotator cuff tear; impingement; long head of the biceps tendinosis; acromioclavicular joint osteoarthritis; Synovitis & Bursitis. Procedure(s) Performed 1) Arthroscopic Left Shoulder Rotator Cuff Repair. 2) Extensive Labral Debridement. 3) Biceps Tenotomy. 4) Open Distal Clavicle Excision. 5) Exam Under Anesthesia. Surgeon Dr. Gordy Tipton Pressure Tank Operator Surgeon(s) Marilyn Clay PA-C Estimated Blood Loss 15ml Findings The left shoulder was then examined under anesthesia and it exhibited: Forward flexion and abduction to160; external rotation 90; internal rotation 15. There was no noted instability. Posterior and anterior translation was 1+. The diagnostic arthroscopy commenced with the following findings: 1. The biceps anchor had significant fraying. There was additional displacement with traction on the biceps. There was significant synovitis around the biceps anchor. 2. The anterior labrum had fraying, but was well adhered. 3. The inferior labrum had fraying, but was well adhered. 4. The inferior pouch showed no loose bodies, but synovitis. 5. The posterior labrum had fraying, but was well adhered. 6. The articular surface of the glenoid had areas of Outerbridge type I changes, most notably inferiorly. 7. The articular surface of humeral head was normal. 8. The long Head of the Biceps had significant tendinosis with in the tendon. A traction stitch was placed prior to completing the tenotomy. The tendinosis was significant enough that the traction stitch would not be maintained. The tendon remained within the bicipital groove after release. 9. The Subscapularis tendon was intact. There was significant synovitis in the anterior aspect of the shoulder. 10. The Supraspinatus tendon had a full-thickness crescent shaped tear approximately 1.5 cm wide. 11. The Infraspinatus and Teres Minor were intact. 12. The Subacromial space showed bursitis, but no bony spur. The humeral head was visible through the crescent shaped tear in the supraspinatus. Fluids 1600 Specimens Permanent Solution: A. Distal Clavicle Drains n/a Anesthesia GET + Interscalene N block Complication(s) None Disposition Recovery Room / PACU (Stable) Indications This is a pleasant 66-year-old male who has been having long-standing left shoulder pain that has failed conservative management. They have MRI and clinical findings suggestive of left rotator cuff tear, long head of the biceps tendinosis, and labral fraying. After a lengthy discussion regarding their options of conservative versus operative management, they have elected to proceed with surgery. The risks of surgery were discussed and include but not limited to: Infection, bleeding, nerve damage, continued pain, progression of arthritis, stiffness, decreased level of activity, and deep vein thrombosis. The patient understood all of their options and the risks of surgery and would like to proceed. The informed consent was signed. Description of Procedure The patient was taken to the operating room and following administration of her interscalene nerve block and general anesthetic, a multidisciplinary time-out was performed identifying my initials on the left shoulder as the correct and operative limb. The patient was then placed in beach chair position with all of their bony prominences well-padded. They were then prepped and draped in the usual orthopedic sterile fashion. All of the bony landmarks were marked as well as the planned incisions. The planned incisions were injected with a 50:50 mixture of 0.5% Marcaine plain and 1% Lidocaine with Epinephrine for a total of 10 cc. Then using a spinal needle which was placed intra-articularly into the glenohumeral joint and insufflated to 35 cc and there was noted appropriate back flow, an additional 15 cc were placed. The standard posterior portal was made with an 11-blade. Trocar was introduced into the glenohumeral joint in the standard fashion. Using an inside out technique, the anterior portal was placed lateral to the coracoid under direct visualization between the Long Head of the Biceps and Subscapularis. A 7mm cannula was then placed. The intra-articular portion of shoulder was addressed first with debriding any fraying from the labrum and supraspinatus tears. The synovitis in the anterior and superior aspects of the glenohumeral joint were debrided with mechanical shaver. The labrum was probed and found to be intact. The tension from the biceps was felt to be a source of pain and creation of the SLAP tear and initially was tagged for possible tenodesis; however, the quality of the tendon was poor and the suture easily pulled through. The long head of the biceps remained within the bicipital groove. The arthroscope had also been removed from the posterior portal and placed anteriorly for better posterior visualization. The arthroscope was then placed subacromially. There was bursitis and the humeral head was visualized through the noted rotator cuff tear. A lateral portal was created under direct visualization with a spinal needle. Once the bursitis was removed and the undersurface of the acromion cleaned off, there was no noted bony spur. An accessory anterior lateral portal was created to aid in placement of the anchors for the rotator cuff repair. Through the lateral portal a Mony cannula was placed. The footprint of the rotator cuff was prepared with a small bur creating a bleeding surface to allow for healing of the supraspinatus. A 4.75 mm SwiveLock with the FiberTape & TigerTape were placed along the medial row in the standard fashion, through the accessory anterior lateral portal, internally and externally rotating the arm as well as abducting to obtain the proper angle. A FiberLink was passed through the most anterior aspect of the supraspinatus, to be incorporated into the lateral row, anterior anchor. The FiberTapes and FiberWire from each anchor were passed using a FiberLink using the scorpion passer. The FiberTapes were crossed, for placement of the lateral row anchors, posteriorly being performed first followed by anterior in the standard fashion. The FiberWire from the anterior lateral row anchor was passed through the most anterior aspect of the tear with scorpion and non-sliding knots were used to further reinforce the repair and correct any dogear. Then, one strand of each FiberWire from the medial row anchor was passed out the lateral portal and was tied together. This was then reduced to the rotator cuff by pulling on the other limb of each FiberWire. Those limbs were then transferred to the lateral portal and a non-sliding alternating half hitch was performed to complete the repair, in the standard fashion. The humeral head was no longer visible. All of the instruments were removed. Our attention was drawn to the AC joint and making a 4 cm incision in-line with the anterior portal incision was made and carried down to the Superior AC joint ligament. A longitudinal incision was made in-line with the fibers of the superior AC joint ligament. The posterior and anterior aspect of the clavicle was exposed and using a sagittal saw the distal 7 mm was removed. A rasp was used to smooth out the edges. The wound was copiously irrigated. Bone wax was placed along the exposed bone. There was adequate space. The Superior AC joint ligament was closed with 2-0 Vicryl. The subcutaneous layer was closed with 3-0 Vicryl. The skin was closed with a running subcuticular stitch using 3-0 Prolene. Steri strips were placed over top. The portal sites were closed with 3-0 and 4-0 Prolene in a standard fashion. Xeroform was placed overtop followed by 4 x 4's, ABDs, and foam tape. The patient was placed in a sling. The sponge and needle counts were correct. POSTOPERATIVE INSTRUCTIONS: The patient will follow-up with physical therapy in 2-3 days. The patient will wear sling for 6 weeks. The patient will follow-up with me in 10 to 15 days. I attest to the content of the Intraoperative Record and any orders documented therein. Any exceptions are noted below.
[2017-07-14 12:16] VITALS: PULSE 61; O2SAT 96
[2017-07-14 12:30] VITALS: BP 155/74; PULSE 64; TEMP 36.5; O2SAT 91
--- NOTE | 2017-07-14 12:33 | Anesthesiology Progress Note ---
Anesthesia Post Op Note Date & Time Jul 14, 2017 at 12:32 Vital Signs Pain Intensity: 4 Vital Signs Past 12 Hours Date Time Temp Pulse Resp B/P (MAP) Pulse Ox O2 Delivery O2 Flow Rate FiO2 07/14/17 12:25 36.2 60 18 133/72 97 Nasal Cannula 2 07/14/17 12:16 61 16 96 Nasal Cannula 2.0 07/14/17 12:15 61 14 130/73 99 Nebulizer 8 07/14/17 12:05 63 16 134/74 93 Nasal Cannula 2 07/14/17 11:55 67 18 138/82 93 Nasal Cannula 2 07/14/17 11:45 64 20 151/80 99 Oxymask 10 07/14/17 11:35 66 23 151/71 99 Oxymask 10 07/14/17 11:28 36.0 67 16 150/75 93 Oxymask 10 07/14/17 06:10 36.3 66 20 115/57 (76) 95 Room Air Notes Mental Status: alert / awake / arousable, participated in evaluation Pt Amnestic to Procedure: Yes Nausea / Vomiting: adequately controlled Pain: adequately controlled Airway Patency, RR, SpO2: stable & adequate BP & HR: stable & adequate Hydration State: stable & adequate Anesthetic Complications: no major complications apparent
[2017-07-14 13:00] VITALS: BP 147/70; PULSE 61; O2SAT 92
[2017-07-14 13:30] VITALS: BP 138/70; PULSE 60; TEMP 36.5; O2SAT 92
[2017-07-14 14:14] VITALS: BP 134/71; PULSE 60; TEMP 36.6; O2SAT 93
--- NOTE | 2017-07-15 13:06 | [facility] Operative Report ---
Operative Report Operative Date Jul 14, 2017. Pre-Operative Diagnosis Left rotator cuff tear; impingement; long head of the biceps tendinosis; and acromioclavicular joint osteoarthritis. Post-Operative Diagnosis Left rotator cuff tear; impingement; long head of the biceps tendinosis; acromioclavicular joint osteoarthritis; Synovitis & Bursitis. Procedure(s) Performed 1) Arthroscopic Left Shoulder Rotator Cuff Repair. 2) Extensive Labral Debridement. 3) Biceps Tenotomy. 4) Open Distal Clavicle Excision. 5) Exam Under Anesthesia. Surgeon Dr. Gordy Tipton Technology Project Manager Surgeon(s) Marilyn Clay PA-C, Jeremías Pak PA-C Estimated Blood Loss 15ml Findings Left shoulder rotator cuff tear, impingement, biceps tendinosis, AC joint arthritis, synovitis, and bursitis Fluids 1600 Specimens Permanent Solution: A. Distal Clavicle Drains n/a Anesthesia GET + Interscalene N block Complication(s) None Disposition Recovery Room / PACU (Stable) Indications This 66-year-old white male presented to the office with complaints of intractable left shoulder pain. He had tried conservative care measures without improvement. He elected to proceed with surgical intervention after being educated about potential risks and outcomes. Preoperative imaging was obtained. Description of Procedure The patient was given a regional block and then taken to the operating room where he was given general anesthetic. He was prepped and draped in usual sterile fashion. Please see Dr. Tipton's operative report for specifics of the procedure. I was present for the second half case, relieving Danna MORRIS. Cysts was provided in arthroscopy, hardware placement, tissue traction, hemostasis, and final wound closure. Patient was taken to the recovery room in satisfactory condition. I attest to the content of the Intraoperative Record and any orders documented therein. Any exceptions are noted below.
== END | disposition home or self-care (01) ==
LOC: C.ACU 04:54
PROVIDERS: ATTEND Orthopaedic Surgery Sports Medicine
DX: M75.122 Complete rotator cuff tear or rupture of left shoulder, not specified as traumatic (principal); M25.812 Other specified joint disorders, left shoulder; M75.22 Bicipital tendinitis, left shoulder; M19.012 Primary osteoarthritis, left shoulder; E11.9 Type 2 diabetes mellitus without complications; I10 Essential (primary) hypertension; E78.5 Hyperlipidemia, unspecified; J45.909 Unspecified asthma, uncomplicated; K21.9 Gastro-esophageal reflux disease without esophagitis; E66.9 Obesity, unspecified; Z79.82 Long term (current) use of aspirin; Z79.84 Long term (current) use of oral hypoglycemic drugs; Z79.899 Other long term (current) drug therapy; Z68.41 Body mass index [BMI] 40.0-44.9, adult

== ENCOUNTER → 2017-10-14 | Outpatient (CLI) | payer BC ==
[~2017-10-14] MED LIST changes: +ALBU18002 INH; -ALBUT/IPRATROP 3MG/0.5MG NEB 3 ML VIAL INH STA; -ATROPINE SULFATE 0.1 MG/ML 5ML SYR IV PRN; -BUPIVACAINE 0.5 % 5 MG/1 ML MPF 30ML VIAL ONE; -CEFAZOLIN 3000MG IV PUSH 15 ML IV SCH; -EpHEDrine SULFATE INJ 50 MG/ML AMP IV PRN; -EpINEphrine HCL INJ 1 MG/ML 5ML SYRINGE ONE; -FENTANYL CITRATE INJ 50 MCG/1 ML 2 ML VIAL ONE; -HYDROmorphone INJ 1 MG/ML SYR ONE; -HYDROmorphone INJ 2 MG/ML SYR/VIAL IV PRN; -LACTATED RINGER'S 1000ML 1,000 ML IV SCH; -LIDOCAINE HCL 2% 2 ML VIAL (20MG/ML) ONE; -LIDOCAINE/EPINEPHRINE 1% 20 ML VIAL ONE; +METO100T44 PO; -MIDAZOLAM HCL 1 MG/ML 2ML VIAL ONE; -MoRPHine SULFATE 2 MG/ML CARP IV PRN; -MoRPHine SULFATE 4 MG/ML 1 ML CARP\\VIAL IV PRN; -NURSING VERBAL MED ORDER ONE; +OMEP20TA PO; -ONDANSETRON INJ 2 MG/ML 2 ML VIAL IV PRN; -ONDANSETRON INJ 2 MG/ML 2 ML VIAL ONE; -OXYCODONE/ACETAMINOPHEN 5-325 TAB PO PRN; -PHENYLEPHRINE 100MCG/ML 5ML SYR IV PRN; -PROPOFOL IV EMULSION 10 MG/ML 20 ML VIAL IV ONE; +RANI150T3 PO; -ROPIVACAINE 0.5% 5 MG/ML 30 ML VIAL ONE; -SODIUM CHLORIDE 0.9% 1000ML IV SCH; -SODIUM CHLORIDE 0.9% PF 50 ML VIAL ONE
[2017-10-14 13:04] LABS: BASO % 0.2 %; BASO ABS # 0.02 K/uL (0-0.2); EOS % 4.8 %; HEMATOCRIT 35.3 % (42-52); HEMOGLOBIN 11.8 g/dL (14.0-18.0); IG# 0.03 K/uL (0.00-0.02); LYMPH % 26.4 %; LYMPH ABS # 2.18 K/uL (1.2-3.4); MEAN CELL VOLUME 99.4 fL (80-100); MEAN CORPUSCULAR HEMOGLOBIN 33.2 pg (25-34); MEAN CORPUSCULAR HGB CONC 33.4 g/dl (32-36); MEAN PLATELET VOLUME 9.3 fL (7.4-10.4); MONO % 8.2 %; MONO ABS # 0.68 K/uL (0.11-0.59); NEUT ABS # 4.94 K/uL (1.4-6.5); PLATELET COUNT 203 K/uL (130-400); RED CELL DISTRIBUTION WIDTH CV 13.8 % (11.5-14.5); RED CELL DISTRIBUTION WIDTH SD 50.4 fL (36.4-46.3); WHITE BLOOD COUNT 8.25 K/uL (4.8-10.8)
[2017-10-14 13:21] LABS: ALBUMIN 3.4 gm/dl (3.4-5.0); ALT/SGPT 24 U/L (12-78); AST/SGOT 20 U/L (15-37); BLOOD UREA NITROGEN 42 mg/dl (7-18); CARBON DIOXIDE 26 mmol/L (21-32); CREATININE 1.24 mg/dl (0.60-1.40); GLUCOSE 116 mg/dl (70-99); LIPASE 241 U/L (73-393); POTASSIUM 4.6 mmol/L (3.5-5.1); SODIUM 137 mmol/L (136-145)
[2017-10-14 13:23] LABS: ALKALINE PHOSPHATASE 64 U/L (45-117); TOTAL PROTEIN 7.6 gm/dl (6.4-8.2)
== END | disposition home or self-care (01) ==
LOC: C.LAB 12:04
PROVIDERS: ATTEND Nurse Practitioner Family
DX: K92.1 Melena (principal); R19.5 Other fecal abnormalities; R10.816 Epigastric abdominal tenderness

== ENCOUNTER 2017-10-20 15:02 | Emergency (ER) | payer BC ==
[~2017-10-20] VITALS: Ht 170.2 cm; Wt 124.9 kg
[~2017-10-20 15:02] MED LIST changes: -OMEP20TA PO; -RANI150T3 PO
[2017-10-20 15:10] VITALS: TEMP 36.5; Ht 170.2 cm; Wt 124.9 kg
[2017-10-20 16:38] VITALS: O2SAT 96
--- NOTE | 2017-10-20 16:39 | EMERGENCY ROOM VISIT NOTE ---
History Report prepared by Nacho: Jordon Ferris Under the Supervision of: Dr. Abraham Cortez M.D. First contact with patient: 16:01 Chief Complaint: ABNORMAL LABS Stated Complaint: ABNORMAL LABS, REFERRED BY MD History of Present Illness The patient is a 67 year old male who presents to the Emergency Room with complaints of a decreased hemoglobin count that began today. The patient reports that starting 6 days ago he began experiencing dark stools that lasted for four days. He reports that his symptoms were also accompanied by some mild abdominal pain. He states that he went to his PCP last week where his blood count was tested. He reports that his dark stool ceased and he began to have normal bowel movements two days ago. He reports that he had his blood count rechecked today. The patient states that his count was 10, which was a concern for the PCP since his blood count in June was 14.6. Per the patient's report , his Creatinine was increased from 1.3 to 1.8 since last June. The patient denies Coumadin use, nausea, vomiting, diarrhea, weakness, lightheaded, shortness of breath, fever, and chills. He reports that he stopped taking baby aspirin last week. Source of History: patient Onset: today Position: other (global) Quality: other (low hemoglobin count) Timing: other (decreasing) Associated Symptoms: No fevers, No chills, No SOB, No nausea, No vomiting, No abdominal pain, No diarrhea, No weakness Review of Systems See HPI for pertinent positives & negatives. A total of 10 systems reviewed and were otherwise negative. Past Medical & Surgical Medical Problems: (1) Asthma (2) History of nose surgery Family History Diabetes mellitus FH: cancer Hypertension Social History Smoking Status: Never Smoker Marital Status: Occupation Status: employed Current/Historical Medications Scheduled Atorvastatin (Lipitor), 10 MG PO QAM Cholecalciferol (Vitamin D3), 2,000 UNITS PO HS Fluticasone Prop/Salmeterol (Advair Diskus 250/50 60 Dose), 1 PUFFS INH BID Lisinopril (Zestril), 40 MG PO QAM Metformin Hcl (Glucophage Er), 750 MG PO QPM Metoprolol Succ (Toprol Xl) (Toprol-Xl ), 150 MG PO QAM Omeprazole (Omeprazole), 2 TAB PO DAILY Ranitidine Hcl (Zantac), 1 TAB PO BID Testosterone (Androgel Pump), 1 DOSE TOP EACH ARM Triamterene/Hctz (Maxzide 75MG/50MG), 0.5 TAB PO QAM Scheduled PRN Albuterol Sulfate (Proair Respiclick), 1-2 PUFF INH Q6H PRN for Shortness of Breath Allergies Coded Allergies: Aspirin (Verified Adverse Reaction, Mild, REGULAR DOSE -> NOSEBLEED, ) Physical Exam Vital Signs Date Time Temp Pulse Resp B/P (MAP) Pulse Ox O2 Delivery O2 Flow Rate FiO2 10/20/17 17:59 65 16 118/61 98 10/20/17 17:02 111/56 10/20/17 17:00 64 14 99 Room Air 10/20/17 16:39 61 10/20/17 16:38 96 Room Air 10/20/17 16:30 64 14 122/63 97 Room Air 10/20/17 15:10 36.5 66 20 104/62 94 Room Air Physical Exam GENERAL: Patient is in no acute distress. HEENT: No acute trauma, normocephalic atraumatic, mucous membranes moist, no nasal congestion, no scleral icterus. NECK: No stridor, no adenopathy, no meningismus, trachea is midline. LUNGS: Clear to auscultation bilaterally, no wheeze, no rhonchi, breath sounds equal. HEART: Without murmurs gallops or rubs, regular rate and rhythm. ABDOMEN: Soft, nontender, bowel sounds positive, no hernias, no peritonitis. EXTREMITIES: No cyanosis or edema, full range of motion of all the joints without pain or difficulty, no signs for acute trauma. NEUROLOGIC: Oriented x 3, no acute motor or sensory deficits, no focal weakness. SKIN: No rash, no jaundice, no diaphoresis. RECTAL: As per resident, stool is heme negative. Medical Decision & Procedures Laboratory Results 10/20/17 16:30 Red Blood Count 3.27, Mean Corpuscular Volume 99.7, Mean Corpuscular Hemoglobin 33.3, Mean Corpuscular Hemoglobin Concent 33.4, Mean Platelet Volume 8.5, Neutrophils (%) (Auto) 61.1, Lymphocytes (%) (Auto) 26.0, Monocytes (%) (Auto) 8.1, Eosinophils (%) (Auto) 4.2, Basophils (%) (Auto) 0.3, Neutrophils # (Auto) 4.21, Lymphocytes # (Auto) 1.79, Monocytes # (Auto) 0.56, Eosinophils # (Auto) 0.29, Basophils # (Auto) 0.02 10/20/17 16:30 Test 10/20/17 16:30 White Blood Count 6.89 K/uL (4.8-10.8) Red Blood Count 3.27 M/uL (4.7-6.1) Hemoglobin 10.9 g/dL (14.0-18.0) Hematocrit 32.6 % (42-52) Mean Corpuscular Volume 99.7 fL (80-100) Mean Corpuscular Hemoglobin 33.3 pg (25-34) Mean Corpuscular Hemoglobin Concent 33.4 g/dl (32-36) Platelet Count 237 K/uL (130-400) Mean Platelet Volume 8.5 fL (7.4-10.4) Neutrophils (%) (Auto) 61.1 % Lymphocytes (%) (Auto) 26.0 % Monocytes (%) (Auto) 8.1 % Eosinophils (%) (Auto) 4.2 % Basophils (%) (Auto) 0.3 % Neutrophils # (Auto) 4.21 K/uL (1.4-6.5) Lymphocytes # (Auto) 1.79 K/uL (1.2-3.4) Monocytes # (Auto) 0.56 K/uL (0.11-0.59) Eosinophils # (Auto) 0.29 K/uL (0-0.5) Basophils # (Auto) 0.02 K/uL (0-0.2) RDW Standard Deviation 52.0 fL (36.4-46.3) RDW Coefficient of Variation 14.4 % (11.5-14.5) Immature Granulocyte % (Auto) 0.3 % Immature Granulocyte # (Auto) 0.02 K/uL (0.00-0.02) Anion Gap 5.0 mmol/L (3-11) Est Creatinine Clear Calc Drug Dose 56.4 ml/min Estimated GFR () 50.5 Estimated GFR (Non- 43.6 BUN/Creatinine Ratio 16.6 (10-20) Calcium Level 9.2 mg/dl (8.5-10.1) Total Bilirubin 0.3 mg/dl (0.2-1) Aspartate Amino Transf (AST/SGOT) 31 U/L (15-37) Alanine Aminotransferase (ALT/SGPT) 29 U/L (12-78) Alkaline Phosphatase 79 U/L (45-117) Total Protein 7.6 gm/dl (6.4-8.2) Albumin 3.7 gm/dl (3.4-5.0) Globulin 3.9 gm/dl (2.5-4.0) Albumin/Globulin Ratio 0.9 (0.9-2) Chemistry Specimen Hemolysis Laboratory results reviewed by me. Medications Administered Medications (Trade) Dose Ordered Sig/Heather Route Start Time Stop Time Status Last Admin Dose Admin Ranitidine HCl (zANTac TAB) 150 mg NOW ONCE PO 10/20/17 17:45 10/20/17 17:46 DC 10/20/17 17:49 150 MG Pantoprazole Sodium (Protonix Tab) 40 mg NOW STAT PO 10/20/17 17:36 10/20/17 17:38 DC 10/20/17 17:49 40 MG ECG Per My Interpretation Indication: other (decreased hemoglobin) Rate (beats per minute): 61 Rhythm: sinus rhythm Findings: 1st degree AV block, other (old anterior septal infarct, No PVCs, No ST elevation) Comparison ECG Date: 03/20/17 Change: no significant change ED Course 1627: The patient was evaluated in room B12B. A complete history and physical exam was performed. 1736: Ordered Protonix Tab 40 mg PO. 1745: Ordered Zantac Tab 150 mg PO. 1746: Reevaluated the patient. Discussed results and discharge instructions: He verbalized understanding and agreement. The patient is ready for discharge. Medical Decision The patient is a 67 year old male who presents to the Emergency Room with complaints of a decreased hemoglobin count that began today. Differential diagnoses considered include upper or lower GI bleeding, gastritis or ulcer, anemia, electrolyte imbalance, and dehydration.. There is no leukocytosis. The patient is somewhat anemic with a hemoglobin of 10.9-this is a drop from June when he was around 14. There is some renal insufficiency/dehydration with a slight rise of the creatinine to 1.6. No hepatitis. On exam, the patient had no abdominal discomfort. He was not toxic or febrile. He had no complaints of chest pain or dyspnea. Rectal exam showed a heme-negative stool. The patient was given oral Zantac and oral Protonix. I do think he is stable for discharge on these medications. It appears the black stool is no longer present and heme testing today is negative. He may have had some upper GI bleeding earlier but it seems to have resolved. He has stopped his aspirin. We will add the antiulcer medications. He already has an endoscopy and colonoscopy scheduled. If things are worsening, if he has return of black or bloody stool, he can return for reassessment. Medication Reconcilliation Current Medication List: was personally reviewed by me Blood Pressure Screening Patient's blood pressure: Normal blood pressure Impression Primary Impression: Black stool Additional Impression: Anemia Scribe Attestation The scribe's documentation has been prepared under my direction and personally reviewed by me in its entirety. I confirm that the note above accurately reflects all work, treatment, procedures, and medical decision making performed by me. Departure Information Dispostion Home / Self-Care Prescriptions Ranitidine Hcl (ZANTAC) 150 Mg Tab 1 TAB PO BID for 14 Days, #28 TAB 0 Refills Prov: Francine Robles M.D. 10/20/17 Omeprazole (OMEPRAZOLE) 20 Mg Tab 2 TAB PO DAILY for 30 Days, #60 TAB 0 Refills Prov: Francine Robles M.D. 10/20/17 Referrals Trevon Arellano D.O. (PCP) Forms HOME CARE DOCUMENTATION FORM, IMPORTANT VISIT INFORMATION, WORK / SCHOOL INSTRUCTIONS Patient Instructions My [facility] Additional Instructions You were seen in the ED to assess your anemia. Your blood count of hemoglobin earlier today was 10.0, and here in the ED it is 10.9. It appears as if your bleeding from your gut has stopped. We have also sent a script for acid reducers to help protect your gut: Zantac take twice daily for 2 weeks. Prilosec take 40mg daily for 1 month. If you have any change or worsening symptoms like pain, fever, vomiting, diarrhea, weakness please return to the ER to be seen. 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 Problem Qualifiers
[2017-10-20 16:47] LABS: BASO % 0.3 %; BASO ABS # 0.02 K/uL (0-0.2); EOS % 4.2 %; EOS ABS # 0.29 K/uL (0-0.5); HEMATOCRIT 32.6 % (42-52); HEMOGLOBIN 10.9 g/dL (14.0-18.0); IG# 0.02 K/uL (0.00-0.02); LYMPH ABS # 1.79 K/uL (1.2-3.4); MEAN CELL VOLUME 99.7 fL (80-100); MEAN CORPUSCULAR HEMOGLOBIN 33.3 pg (25-34); MEAN CORPUSCULAR HGB CONC 33.4 g/dl (32-36); MEAN PLATELET VOLUME 8.5 fL (7.4-10.4); MONO % 8.1 %; MONO ABS # 0.56 K/uL (0.11-0.59); NEUT % 61.1 %; NEUT ABS # 4.21 K/uL (1.4-6.5); PLATELET COUNT 237 K/uL (130-400); RED CELL DISTRIBUTION WIDTH CV 14.4 % (11.5-14.5); WHITE BLOOD COUNT 6.89 K/uL (4.8-10.8)
--- NOTE | 2017-10-20 16:49 | EMERGENCY ROOM VISIT NOTE ---
History First contact with patient: 16:02 Chief Complaint: ABNORMAL LABS Stated Complaint: ABNORMAL LABS, REFERRED BY MD History of Present Illness The patient is a 67 year old male who presents to the Emergency Room with complaints of loose dark stools over the course of 4 days last week. Pt was seen by his PCP and his hemoglobin was found to be 11.8. Pt states that his dark stools abated since Thursday and has not had any more dark stools since. His hemoglobin was rechecked earlier today and was 10, and his PCP informed him to come to the ED to be evaluated. Denies symptoms of lightheadedness, fall, dizziness, weakness. Only complaint is mild diffuse abdominal discomfort. Review of Systems ROS See HPI for pertinent positives and negatives. Past Medical/Surgical History Medical Problems: (1) Asthma (2) History of nose surgery Family History Diabetes mellitus FH: cancer Hypertension Social History Smoking Status: Never Smoker Marital Status: Occupation Status: employed Current/Historical Medications Scheduled Atorvastatin (Lipitor), 10 MG PO QAM Cholecalciferol (Vitamin D3), 2,000 UNITS PO HS Fluticasone Prop/Salmeterol (Advair Diskus 250/50 60 Dose), 1 PUFFS INH BID Lisinopril (Zestril), 40 MG PO QAM Metformin Hcl (Glucophage Er), 750 MG PO QPM Metoprolol Succ (Toprol Xl) (Toprol-Xl ), 150 MG PO QAM Omeprazole (Omeprazole), 2 TAB PO DAILY Ranitidine Hcl (Zantac), 1 TAB PO BID Testosterone (Androgel Pump), 1 DOSE TOP EACH ARM Triamterene/Hctz (Maxzide 75MG/50MG), 0.5 TAB PO QAM Scheduled PRN Albuterol Sulfate (Proair Respiclick), 1-2 PUFF INH Q6H PRN for Shortness of Breath Physical Exam Vital Signs Date Time Temp Pulse Resp B/P (MAP) Pulse Ox O2 Delivery O2 Flow Rate FiO2 10/20/17 17:02 111/56 10/20/17 17:00 64 14 99 Room Air 10/20/17 16:39 61 10/20/17 16:38 96 Room Air 10/20/17 16:30 64 14 122/63 97 Room Air 10/20/17 15:10 36.5 66 20 104/62 94 Room Air Physical Exam GENERAL: Awake, alert, well-appearing, in no distress. Obese. HENT: Normocephalic, atraumatic. EYES: Normal conjunctiva. Sclera non-icteric. NECK: Supple. FROM. No JVD. RESPIRATORY: Clear to auscultation. CARDIAC: Regular rate, normal rhythm. Extremities warm and well perfused. Pulses equal. ABDOMEN: Soft, non-distended. +Mild tenderness to palpation in all four quadrants. No rebound or guarding. No masses. LOWER EXTREMITIES: Calves are equal size bilaterally and non-tender. No edema. No discoloration. NEURO: No motor deficits noted. SKIN: No rash or jaundice noted. Medical Decision & Procedures Laboratory Results 10/20/17 16:30 Red Blood Count 3.27, Mean Corpuscular Volume 99.7, Mean Corpuscular Hemoglobin 33.3, Mean Corpuscular Hemoglobin Concent 33.4, Mean Platelet Volume 8.5, Neutrophils (%) (Auto) 61.1, Lymphocytes (%) (Auto) 26.0, Monocytes (%) (Auto) 8.1, Eosinophils (%) (Auto) 4.2, Basophils (%) (Auto) 0.3, Neutrophils # (Auto) 4.21, Lymphocytes # (Auto) 1.79, Monocytes # (Auto) 0.56, Eosinophils # (Auto) 0.29, Basophils # (Auto) 0.02 10/20/17 16:30 Test 10/20/17 16:30 White Blood Count 6.89 K/uL (4.8-10.8) Red Blood Count 3.27 M/uL (4.7-6.1) Hemoglobin 10.9 g/dL (14.0-18.0) Hematocrit 32.6 % (42-52) Mean Corpuscular Volume 99.7 fL (80-100) Mean Corpuscular Hemoglobin 33.3 pg (25-34) Mean Corpuscular Hemoglobin Concent 33.4 g/dl (32-36) Platelet Count 237 K/uL (130-400) Mean Platelet Volume 8.5 fL (7.4-10.4) Neutrophils (%) (Auto) 61.1 % Lymphocytes (%) (Auto) 26.0 % Monocytes (%) (Auto) 8.1 % Eosinophils (%) (Auto) 4.2 % Basophils (%) (Auto) 0.3 % Neutrophils # (Auto) 4.21 K/uL (1.4-6.5) Lymphocytes # (Auto) 1.79 K/uL (1.2-3.4) Monocytes # (Auto) 0.56 K/uL (0.11-0.59) Eosinophils # (Auto) 0.29 K/uL (0-0.5) Basophils # (Auto) 0.02 K/uL (0-0.2) RDW Standard Deviation 52.0 fL (36.4-46.3) RDW Coefficient of Variation 14.4 % (11.5-14.5) Immature Granulocyte % (Auto) 0.3 % Immature Granulocyte # (Auto) 0.02 K/uL (0.00-0.02) Anion Gap 5.0 mmol/L (3-11) Est Creatinine Clear Calc Drug Dose 56.4 ml/min Estimated GFR () 50.5 Estimated GFR (Non- 43.6 BUN/Creatinine Ratio 16.6 (10-20) Calcium Level 9.2 mg/dl (8.5-10.1) Total Bilirubin 0.3 mg/dl (0.2-1) Aspartate Amino Transf (AST/SGOT) 31 U/L (15-37) Alanine Aminotransferase (ALT/SGPT) 29 U/L (12-78) Alkaline Phosphatase 79 U/L (45-117) Total Protein 7.6 gm/dl (6.4-8.2) Albumin 3.7 gm/dl (3.4-5.0) Globulin 3.9 gm/dl (2.5-4.0) Albumin/Globulin Ratio 0.9 (0.9-2) Chemistry Specimen Hemolysis ED Course 1603 Reviewed records. Pt seen and assessed by resident. 1621 Discussed with attending. Ordered CBC, CMP. Hemoccult is negative. 1700 CBC shows Hgb 10.9. 1728 CMP is unremarkable with the exception of creatinine is 1.61. However this is trending down given earlier labs, but is still elevated above baseline. 1749 Discussed results of lab work with pt, administered dose of zantac and prilosec. Pt medically stable for discharge. Medical Decision The patient is a 67 year old male who presents to the Emergency Room with complaints of loose dark stools over the course of 4 days last week. Pt was seen by his PCP and his hemoglobin was found to be __. Pt states that his dark stools abated since Thursday and has not had any more dark stools since. His hemoglobin was rechecked today and was 10, and his PCP informed him to come to the ED to be evaluated. Denies symptoms of lightheadedness, fall, dizziness, weakness. Only complaint is mild diffuse abdominal discomfort. Diff dx: GI bleed, perforated peptic ulcer, AVM, diarrhea, colitis, severe anemia Cbc shows stable hgb 10.9 which is stable since his previous cbc earlier today ( 10.0). Pt denies s/s of severe anemia. Pt has EGD and colonoscopy scheduled as an outpatient per his PCP. Vitals are stable here. CMP does show slightly elevated creatinine but this is trending downward when compared to earlier labs however is not quite at baseline, likely 2/2 blood loss. Ordered a dose of prilosec and zantac here in the ED and sent a script for 2 weeks of Zantac and 1 month of Prilosec to pt's pharmacy. Pt verbalized understanding and agreement. Medically stable for discharge. Medication Reconcilliation Current Medication List: was personally reviewed by me Blood Pressure Screening Patient's blood pressure: Normal blood pressure Impression Primary Impression: Black stool Additional Impression: Anemia Departure Information Dispostion Home / Self-Care Condition GOOD Prescriptions Ranitidine Hcl (ZANTAC) 150 Mg Tab 1 TAB PO BID for 14 Days, #28 TAB 0 Refills Prov: Francine Robles M.D. 10/20/17 Omeprazole (OMEPRAZOLE) 20 Mg Tab 2 TAB PO DAILY for 30 Days, #60 TAB 0 Refills Prov: Francine Robles M.D. 10/20/17 Referrals Trevon Arellano D.O. (PCP) Patient Instructions My [facility] Additional Instructions You were seen in the ED to assess your anemia. Your blood count of hemoglobin earlier today was 10.0, and here in the ED it is 10.9. It appears as if your bleeding from your gut has stopped. We have also sent a script for acid reducers to help protect your gut: Zantac take twice daily for 2 weeks. Prilosec take 40mg daily for 1 month. If you have any change or worsening symptoms like pain, fever, vomiting, diarrhea, weakness please return to the ER to be seen. 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 Resident Tracking Resident Involvement: Resident Care Provided Care Provided: Adult ED Problem Qualifiers
[2017-10-20 17:24] LABS: ALBUMIN 3.7 gm/dl (3.4-5.0); CALCIUM 9.2 mg/dl (8.5-10.1); CREATININE 1.61 mg/dl (0.60-1.40); POTASSIUM 4.9 mmol/L (3.5-5.1); TOTAL PROTEIN 7.6 gm/dl (6.4-8.2)
[2017-10-20] MEDS ORDERED: PANTOprazole SOD 40 MG TAB PO STA (17:36)
[2017-10-20] MEDS ORDERED: OMEP20TA PO (17:40)
[2017-10-20] MEDS ORDERED: RANI150T3 PO (17:40)
[2017-10-20] MEDS ORDERED: RANITIDINE HCL 150 MG TAB PO ONE (17:45)
[2017-10-20 17:59] VITALS: BP 118/61; PULSE 65; O2SAT 98
== END 2017-10-20 17:53 | disposition home or self-care (01) ==
LOC: C.EDB 15:03
DX: D64.9 Anemia, unspecified (principal); R19.5 Other fecal abnormalities; J45.909 Unspecified asthma, uncomplicated; Z79.84 Long term (current) use of oral hypoglycemic drugs; Z88.6 Allergy status to analgesic agent; Z83.3 Family history of diabetes mellitus; Z82.49 Family history of ischemic heart disease and other diseases of the circulatory system

== ENCOUNTER → 2017-10-20 | Outpatient (CLI) | payer BC ==
[~2017-10-20] MED LIST changes: -METO-217 PO; -OXYC-57 PO; -VNTHFA/IN INH
[2017-10-20 10:09] LABS: BASO % 0.5 %; BASO ABS # 0.03 K/uL (0-0.2); EOS ABS # 0.24 K/uL (0-0.5); HEMATOCRIT 29.9 % (42-52); IG# 0.01 K/uL (0.00-0.02); LYMPH % 27.1 %; LYMPH ABS # 1.62 K/uL (1.2-3.4); MEAN CORPUSCULAR HEMOGLOBIN 33.4 pg (25-34); MEAN CORPUSCULAR HGB CONC 33.4 g/dl (32-36); MEAN PLATELET VOLUME 8.6 fL (7.4-10.4); MONO ABS # 0.48 K/uL (0.11-0.59); NEUT % 60.2 %; PLATELET COUNT 209 K/uL (130-400); RED CELL DISTRIBUTION WIDTH CV 14.3 % (11.5-14.5); WHITE BLOOD COUNT 5.98 K/uL (4.8-10.8)
[2017-10-20 10:39] LABS: ALBUMIN 3.5 gm/dl (3.4-5.0); ALT/SGPT 25 U/L (12-78); AST/SGOT 24 U/L (15-37); BLOOD UREA NITROGEN 25 mg/dl (7-18); CALCIUM 9.6 mg/dl (8.5-10.1); CARBON DIOXIDE 26 mmol/L (21-32); CREATININE 1.84 mg/dl (0.60-1.40); GLUCOSE 112 mg/dl (70-99); POTASSIUM 4.7 mmol/L (3.5-5.1); SODIUM 136 mmol/L (136-145); TOTAL PROTEIN 7.6 gm/dl (6.4-8.2)
[2017-10-20 10:40] LABS: ALKALINE PHOSPHATASE 74 U/L (45-117)
== END | disposition home or self-care (01) ==
LOC: C.LAB 09:38
PROVIDERS: ATTEND Nurse Practitioner Family
DX: D64.9 Anemia, unspecified (principal)

== ENCOUNTER → 2017-10-28 | Day surgery (SDC) | payer BC ==
[2017-10-19 08:39] VITALS: Ht 170.2 cm; Wt 123.2 kg
[~2017-10-28] VITALS: Ht 170.2 cm; Wt 123.2 kg
[~2017-10-28] MED LIST changes: -ASPI81TA28 PO; +ATROPINE SULFATE 0.1 MG/ML 5ML SYR IV PRN; +EpHEDrine SULFATE 50MG/5ML SYR ONE; +EpHEDrine SULFATE INJ 50 MG/ML AMP IV PRN; +LIDOCAINE HCL 2% 2 ML VIAL (20MG/ML) ONE; +OMEP20TA PO; +PROPOFOL IV EMULSION 10 MG/ML 20 ML VIAL IV ONE; +RANI150T3 PO
--- NOTE | 2017-10-28 15:15 | Endo History and Physical ---
History & Physical Date of Service: Oct 28, 2017. Chief Complaint: ABD PAIN, HEME POSITIVE STOOL Referring Physician: DR HORTON History of Present Illness For EGD and colonoscopy Past Surgical History Hx Cardiac Surgery: Yes (HEART CATH/NO STENTS) Hx Internal Defibrillator: No Hx Pacemaker: No Hx Abdominal Surgery: Yes (APPY) Hx of Implantable Prosthesis: No Hx Post-Op Nausea and Vomiting: No Hx Cancer Surgery: Yes (SKIN EAR CANCER EXCISION) Hx Thoracic Surgery: No Hx Orthopedic: No Hx Urinary Tract Surgery: No Family History Colon CA Social History Smoking Status: Never Smoker Hx Substance Use: No Hx Alcohol Use: No Allergies Coded Allergies: Aspirin (Verified Adverse Reaction, Mild, REGULAR DOSE -> NOSEBLEED, ) Current Medications Reported Home Medications Medications Dose Route/Sig Max Daily Dose Days Date Category Zantac (Ranitidine HCl) 150 Mg Tab 1 Tab PO BID 14 10/20/17 Rx Omeprazole 20 Mg Tab 2 Tab PO DAILY 30 10/20/17 Rx Proair Respiclick (Albuterol Sulfate) 108 Mcg/Act Aer 1-2 Puff INH Q6H PRN 10/19/17 Reported Toprol-Xl (Metoprolol Succinate) 100 Mg Tabcr 150 Mg PO QAM 10/19/17 Reported Zestril (Lisinopril) 40 Mg Tab 40 Mg PO QAM 07/07/17 Reported Glucophage Er (Metformin Hcl) 750 Mg Tab 750 Mg PO QPM 03/24/17 Reported Vitamin D3 (Cholecalciferol) 2,000 Unit Tab 2,000 Units PO HS 03/24/17 Reported Lipitor (Atorvastatin Calcium) 10 Mg Tab 10 Mg PO QAM 12/28/15 Reported Maxzide 75MG/50MG (Triamterene/HCTZ) Tab 0.5 Tab PO QAM 12/28/15 Reported Androgel Pump (Testosterone) 1.62 % Gel 1 Dose TOP EACH ARM 12/28/15 Reported Advair Diskus 250/50 60 Dose (Fluticasone Prop/Salmeterol) 1 Ea Aerp 1 Puffs INH BID 12/28/15 Reported Vital Signs Weight (Kilograms): 123.18 Height (Feet): 5 Height (Inches): 7 Date Time Temp Pulse Resp B/P (MAP) Pulse Ox O2 Delivery O2 Flow Rate FiO2 10/28/17 14:54 36.4 62 18 121/55 (77) 95 Room Air Physical Exam General Appearance: + obese Respiratory/Chest: Respiratory effort: dyspneic Cardiovascular: Heart Auscultation: RRR Abdomen: Inspection & Palpation: distended Assessment and Plan abd pain , melena for EGD and colonoscopy
--- NOTE | 2017-10-28 15:53 | Discharge Instructions ---
Endoscopy Patient Instructions Date / Procedure(s) Performed Oct 28, 2017. Colonoscopy, EGD Allergy Information Coded Allergies: Aspirin (Verified Adverse Reaction, Mild, REGULAR DOSE -> NOSEBLEED, ) Discharge Date / Findings Oct 28, 2017. Duodenal ulcer, diverticulosis, hemorrhoids Medication Instructions Stopped Medication(s): METFORMIN LAST DOSE 10/25/17 Restart Stopped Medication(s): resume meds Reported Home Medications Medications Dose Route/Sig Max Daily Dose Days Date Category Zantac (Ranitidine HCl) 150 Mg Tab 1 Tab PO BID 14 10/20/17 Rx Omeprazole 20 Mg Tab 2 Tab PO DAILY 30 10/20/17 Rx Proair Respiclick (Albuterol Sulfate) 108 Mcg/Act Aer 1-2 Puff INH Q6H PRN 10/19/17 Reported Toprol-Xl (Metoprolol Succinate) 100 Mg Tabcr 150 Mg PO QAM 10/19/17 Reported Zestril (Lisinopril) 40 Mg Tab 40 Mg PO QAM 07/07/17 Reported Glucophage Er (Metformin Hcl) 750 Mg Tab 750 Mg PO QPM 03/24/17 Reported Vitamin D3 (Cholecalciferol) 2,000 Unit Tab 2,000 Units PO HS 03/24/17 Reported Lipitor (Atorvastatin Calcium) 10 Mg Tab 10 Mg PO QAM 12/28/15 Reported Maxzide 75MG/50MG (Triamterene/HCTZ) Tab 0.5 Tab PO QAM 12/28/15 Reported Androgel Pump (Testosterone) 1.62 % Gel 1 Dose TOP EACH ARM 12/28/15 Reported Advair Diskus 250/50 60 Dose (Fluticasone Prop/Salmeterol) 1 Ea Aerp 1 Puffs INH BID 12/28/15 Reported Provider Instructions Activity Restrictions - No exercising or heavy lifting for 24 hours. - Do not drink alcohol the day of the procedure. - Do not drive a car or operate machinery until the day after the procedure. - Do not make any important decisions or sign important papers in 24 hours after the procedure. Following Day: - Return to full activity which may include returning to work/school. Diet Start your diet with liquids and light foods (jello, soup, juice, toast). Then eat your usual diet if not nauseated. Treatment For Common After Affects For mild abdominal pain, bloating, or excessive gas: - Rest - Eat lightly - Lie on right side Stool for H pylori Follow-Up Information Follow-up with DR HORTON as scheduled Anesthesia Information What You Should Know You have had a procedure that required some medicine to reduce anxiety and discomfort. This treatment is called moderate sedation. After receiving the treatment, you may be sleepy, but you will be able to breathe on your own. The effects of the treatment may last for several hours. Follow these instructions along with Activity/Diet recommendations noted above: * Do NOT do anything where dizziness or clumsiness would be dangerous. * Rest quietly at home today, then you can be up and about tomorrow. * Have a responsible person stay with you the rest of today. * You may have had an I.V. today. If so, you may take the dressing off later today. Recommendations Call your doctor if: * Trouble breathing * Continuous vomiting for more than 24 hours * Temperature above 101 degrees * Severe abdominal pain or bloating * Pain not relieved by pain medicine ordered * There is increased drainage or redness from any incision * A large amount of rectal bleeding greater than 2-3 tablespoons. (If you had a polyp/s removed or have hemorrhoids, a small amount of blood - from the rectum is to be expected.) * You have any unanswered questions or concerns. IN THE EVENT OF A SERIOUS EMERGENCY, GO TO THE NEAREST EMERGENCY ROOM Your discharge instructions were prepared by provider Alfonso Schmitz. Patient Instructions Signature Page [place] [place] Patient (or Guardian) Signature/Date: I have read and understand the instructions given to me by my caregivers. Caregiver/RN/Doctor Signature/Date: The above-named patient and/or guardian has received patient instructions on this date. + Original Patient Signature Page (only) stays with chart. Please make copy for patient.
--- NOTE | 2017-10-28 15:57 | GI REPORT ---
Procedure Date: 10/28/2017 3:23 PM Procedure: Upper GI endoscopy Indications: Epigastric abdominal pain, Heme positive stool Medicines: Propofol total dose 200 mg IV, Lidocaine 80 mg IV Complications: No immediate complications. Estimated Blood Loss: Estimated blood loss: none. Procedure: Pre-Anesthesia Assessment: - Prior to the procedure, a History and Physical was performed, and patient medications, allergies and sensitivities were reviewed. The patient's tolerance of previous anesthesia was reviewed. - The risks and benefits of the procedure and the sedation options and risks were discussed with the patient. All questions were answered and informed consent was obtained. After obtaining informed consent, the endoscope was passed under direct vision. Throughout the procedure, the patient's blood pressure, pulse, and oxygen saturations were monitored continuously. The scope was introduced through the mouth, and advanced to the second part of duodenum. The upper GI endoscopy was accomplished without difficulty. The patient tolerated the procedure well. Findings: The examined esophagus was normal. The Z-line was regular and was found 40 cm from the incisors. The entire examined stomach was normal. One non-bleeding cratered duodenal ulcer with no stigmata of bleeding was found in the duodenal bulb. The lesion was 10 mm in largest dimension. Impression: - Normal esophagus. - Z-line regular, 40 cm from the incisors. - Normal stomach. - One non-bleeding duodenal ulcer with no stigmata of bleeding. - No specimens collected. Recommendation: - Discharge patient to home (ambulatory). - Perform an H. pylori stool antigen (HpSA) test at appointment to be scheduled. - Return to GI office in 1 month. Alfonso Schmitz M.D. Alfonso Schmitz MD 10/28/2017 3:57:05 PM This report has been signed electronically. Note Initiated On: 10/28/2017 3:23 PM I attest to the content of the Intraoperative Record and orders documented therein, exceptions below
--- NOTE | 2017-10-28 15:59 | GI REPORT ---
Procedure Date: 10/28/2017 3:39 PM Procedure: Colonoscopy Indications: Heme positive stool Medicines: Propofol total dose 200 mg IV, Lidocaine 80 mg IV Complications: No immediate complications. Estimated Blood Loss: Estimated blood loss: none. Procedure: Pre-Anesthesia Assessment: - Prior to the procedure, a History and Physical was performed, and patient medications, allergies and sensitivities were reviewed. The patient's tolerance of previous anesthesia was reviewed. - The risks and benefits of the procedure and the sedation options and risks were discussed with the patient. All questions were answered and informed consent was obtained. After I obtained informed consent, the scope was passed under direct vision. Throughout the procedure, the patient's blood pressure, pulse, and oxygen saturations were monitored continuously. The scope was introduced through the anus and advanced to the cecum, identified by appendiceal orifice and ileocecal valve. The colonoscopy was performed without difficulty. The patient tolerated the procedure well. The quality of the bowel preparation was good. Findings: Non-bleeding internal hemorrhoids were found during endoscopy. The hemorrhoids were mild. Multiple diverticula were found in the sigmoid colon. Impression: - Non-bleeding internal hemorrhoids. - Diverticulosis in the sigmoid colon. - No specimens collected. Recommendation: - Discharge patient to home (ambulatory). - Continue present medications. - Return to primary care physician PRN. Alfonso Schmitz M.D. Alfonso Shcmitz MD 10/28/2017 3:59:13 PM This report has been signed electronically. Note Initiated On: 10/28/2017 3:39 PM I attest to the content of the Intraoperative Record and orders documented therein, exceptions below
--- NOTE | 2017-10-28 16:11 | Anesthesiology Progress Note ---
Anesthesia Post Op Note Date & Time Oct 28, 2017 at 16:11 Vital Signs Pain Intensity: 0 Vital Signs Past 12 Hours Date Time Temp Pulse Resp B/P (MAP) Pulse Ox O2 Delivery O2 Flow Rate FiO2 10/28/17 15:57 65 18 101/53 (69) 94 Room Air 10/28/17 14:54 36.4 62 18 121/55 (77) 95 Room Air Notes Mental Status: alert / awake / arousable, participated in evaluation Pt Amnestic to Procedure: Yes Nausea / Vomiting: adequately controlled Pain: adequately controlled Airway Patency, RR, SpO2: stable & adequate BP & HR: stable & adequate Hydration State: stable & adequate Anesthetic Complications: no major complications apparent
[2017-10-28 16:27] VITALS: BP 123/58; PULSE 63; O2SAT 96
== END | disposition home or self-care (01) ==
LOC: C.GI 13:31
PROVIDERS: ATTEND Internal Medicine Gastroenterology
DX: R10.13 Epigastric pain (principal); K92.1 Melena; K26.9 Duodenal ulcer, unspecified as acute or chronic, without hemorrhage or perforation; K57.30 Diverticulosis of large intestine without perforation or abscess without bleeding; K64.8 Other hemorrhoids; Z90.49 Acquired absence of other specified parts of digestive tract; Z85.828 Personal history of other malignant neoplasm of skin; Z80.0 Family history of malignant neoplasm of digestive organs

== ENCOUNTER → 2017-11-02 | Outpatient (CLI) | payer BC ==
[~2017-11-02] MED LIST changes: -ATROPINE SULFATE 0.1 MG/ML 5ML SYR IV PRN; -EpHEDrine SULFATE 50MG/5ML SYR ONE; -EpHEDrine SULFATE INJ 50 MG/ML AMP IV PRN; -LIDOCAINE HCL 2% 2 ML VIAL (20MG/ML) ONE; -PROPOFOL IV EMULSION 10 MG/ML 20 ML VIAL IV ONE
== END | disposition home or self-care (01) ==
LOC: C.LAB 11:40
PROVIDERS: ATTEND Internal Medicine Gastroenterology
DX: K26.9 Duodenal ulcer, unspecified as acute or chronic, without hemorrhage or perforation (principal)

== ENCOUNTER → 2017-11-10 | Outpatient (CLI) | payer BC ==
[2017-11-10 17:39] LABS: HEMATOCRIT 35.1 % (42-52); HEMOGLOBIN 11.5 g/dL (14.0-18.0); MEAN CELL VOLUME 101.4 fL (80-100); MEAN CORPUSCULAR HEMOGLOBIN 33.2 pg (25-34); MEAN CORPUSCULAR HGB CONC 32.8 g/dl (32-36); MEAN PLATELET VOLUME 9.5 fL (7.4-10.4); PLATELET COUNT 209 K/uL (130-400); RED CELL DISTRIBUTION WIDTH SD 52.1 fL (36.4-46.3); WHITE BLOOD COUNT 5.89 K/uL (4.8-10.8)
[2017-11-10 17:57] LABS: ALBUMIN 3.3 gm/dl (3.4-5.0); BLOOD UREA NITROGEN 25 mg/dl (7-18); CALCIUM 8.9 mg/dl (8.5-10.1); CARBON DIOXIDE 23 mmol/L (21-32); CREATININE 1.31 mg/dl (0.60-1.40); GLUCOSE 142 mg/dl (70-99); POTASSIUM 4.5 mmol/L (3.5-5.1); SODIUM 138 mmol/L (136-145)
== END | disposition home or self-care (01) ==
LOC: C.LABPVFM 14:30
PROVIDERS: ATTEND Neuromusculoskeletal Medicine & OMM
DX: D64.9 Anemia, unspecified (principal); N17.9 Acute kidney failure, unspecified

== ENCOUNTER 2020-06-26 09:14 | Inpatient (IN) ==
--- NOTE | 2020-06-26 09:48 | Emergency Department Note ---
Impression & Plan SOB (shortness of breath), Pneumonia, COVID-19, Acute hyponatremia ED Provider Note NAME: ESTELLE VEGA AGE: 69 SEX: M : 1950 ARRIVES VIA: Walk-In INFORMANT: Patient ED PROVIDER(S): [Abraham Cortez MD] CHIEF COMPLAINT: Shortness of breath HISTORY OF PRESENT ILLNESS: The patient is a 69-year-old male presents the ED with shortness of breath and cough. The patient has felt poorly since June 14, about 2 weeks ago his symptoms began. He also has had around 2 weeks of diarrhea. No vomiting. No fever. He states his shortness of breath is worse at nighttime when he tries to sleep. He has been sleeping in a recliner. There has been no change in his taste or smell. He has not had any chest pain or body aches. The patient states that he is living with his who has cold- like symptoms. The patient tried to contact his family doctor's office to be seen, he was unsuccessful so he came to the ED for help. REVIEW OF SYSTEMS: See HPI for pertinent positives and negatives. A total of ten systems were reviewed and were otherwise negative. PMHx/PSHx: See Below SOCIAL HISTORY: See Below. PHYSICAL EXAM: GENERAL: Patient is in mild respiratory distress. HEENT: No acute trauma, normocephalic atraumatic, mucous membranes moist, no nasal congestion, no scleral icterus. NECK: No stridor, no adenopathy, no meningismus, trachea is midline. LUNGS: No obvious wheeze, very mild respiratory distress--he does have an increased respiratory rate. No accessory muscle use. Speaks in full sentences. HEART: Regular rate and rhythm, equal radial pulses bilaterally. ABDOMEN: Soft, nontender, bowel sounds positive, no hernias, no peritonitis. EXTREMITIES: No cyanosis, mild bilateral pedal edema, full range of motion of all the joints without pain or difficulty, no signs for acute trauma. NEUROLOGIC: Oriented x 3, no acute motor or sensory deficits, no focal weakness. SKIN: No rash, no jaundice, no diaphoresis. DIFFERENTIAL DIAGNOSIS: Reactive airway disease, pneumonia, coronavirus, bronchitis, influenza, pneumothorax, COPD, CHF, infections, cardiac ischemia, pulmonary embolism, musculoskeletal, gastrointestinal, as well as other pathologies. EMERGENCY DEPARTMENT COURSE/PROCEDURES: ECG: Indication was shortness of breath. The ECG shows a normal sinus rhythm with a rate of 78. There is some baseline artifact present. No ST elevation or PVCs, there is a left bundle branch block. There is a potential old inferior and anterior infarct present. Compared to an ECG from 20 October 2017, the QRS is wider. Continuous Cardiac Monitoring: An order was placed for continuous cardiac monitoring. The monitor shows a rate of 76 with normal sinus rhythm. Critical Care Note: I have personally spent 38 minutes of critical care time in the direct management of this patient. This includes bedside care, interpretation of diagnostic studies, and testing, discussion with consultants, patient, and family members, and other required patient management activities. This 38 minutes is in excess of all separately billable procedures. MEDICAL DECISION MAKING: There is no leukocytosis or concerning anemia. There is a normal platelet count. Sodium was low at 122. Creatinine was elevated at 1.62, consistent with dehydration. Lactic acid level was not elevated making severe sepsis less likely. No worrisome liver enzyme elevations. The patient appeared to be in a euthyroid state. Urinalysis showed some contamination, no infection. Influenza testing was negative. Coronavirus testing returned positive. Chest film shows a bilateral diffuse pneumonia. ECG shows a sinus rhythm with a left bundle branch block, no acute ischemic change. On exam, the patient did seem short of breath. He was not hypoxic while sitting still. Patient presents with increasing shortness of breath. He has had a cough. Work-up suggests a Covid pneumonia as the cause for his issue. In addition, he is hyponatremic and dehydrated. Given his past history, given his age, given his work-up and findings, I do think a hospital stay is warranted. The patient was given IV Decadron, he received a 500 cc saline bolus. He was maintained in respiratory isolation. I spoke to the patient about his findings, I spoke with case management, the on- call hospitalist was consulted. Past Med/Surg History Medical History Asthma Cellulitis Diabetes mellitus, type 2 Duodenal ulcer Dyslipidemia GERD (gastroesophageal reflux disease) Hyperlipidemia Hypertension Kidney stones Nonischemic cardiomyopathy Osteoarthritis Poor historian Squamous cell carcinoma of skin Superficial thrombophlebitis Surgical History History of cardiac cath APR 2017 - [facility] (BELIEVES CATH DONE BC OF NEW ARRHYTHMIA - UNSURE OF SPECIFICS) - NO STENTS/ANGIOPLASTY - FOLLOWS W/ DR. BULL History of cataract surgery History of colonoscopy History of esophagogastroduodenoscopy (EGD) last EGD/Colonoscopy on 10/28/17 under sedation without complications History of repair of rotator cuff LEFT SHOULDER 06/2017-glidescope 4, #7.5 ETT without problem History of tooth extraction Hx of tonsillectomy Family History (Updated 06/26/20 @ 12:11 by Rafi Webber) Brother Colorectal cancer Mother Liver cancer Father , cancer with mets to bone No problems noted. 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 How many Children do You have: 0 Feels Safe at Home: Yes Seatbelt Use: always Assistive Devices: Denture - Upper, Denture - Lower and Glasses Allergies Allergies Allergy/AdvReac Type Severity Reaction Status Date / Time aspirin AdvReac Mild REGULAR Verified 06/26/20 10:43 DOSE -> NOSEBLEED Home Meds Home Medications Medication Instructions Recorded Confirmed magnesium 400 mg PO QAM 04/23/18 06/26/20 varicella-zoster gE vac,2 of 2 50 0.5 ml IM .INJECT 0.5 ML Once A 01/24/19 02/07/20 mcg IM suspension #0.5 ea cholecalciferol (vitamin D3) 50 2,000 unit PO HS 01/31/19 06/26/20 mcg (2,000 unit) capsule fluticasone propionate 50 1 spray INTRANASAL QAM 01/31/19 06/26/20 mcg/actuation nasal spray,suspension atorvastatin 10 mg PO QAM 06/26/20 06/26/20 lisinopril 40 mg PO QAM 06/26/20 06/26/20 metformin 750 mg PO QDD 06/26/20 06/26/20 testosterone [AndroGel] 2 pump TRANSDERMAL QAM 06/26/20 06/26/20 triamterene-hydrochlorothiazid 0.5 tab PO QAM 06/26/20 06/26/20 Previous Rx's Medication Instructions Recorded albuterol sulfate 90 mcg/actuation 2 puff INHALATION Q6H PRN #8.5 gm 11/02/19 aerosol inhaler fluticasone 250 mcg-salmeterol 50 1 inh INHALATION BID #60 ea 12/08/19 mcg/dose blistr powdr for inhalation colchicine 0.6 mg capsule 0.6 mg PO BID #60 cap 03/27/20 metoprolol succinate 100 mg 100 mg PO QAM #90 tab 06/18/20 tablet,extended release 24 hr Results & Data (ED) Vital Signs Vital Signs - 24 hr 06/26/20 09:19 06/26/20 10:13 06/26/20 10:20 Temperature 37 C Temperature Source Temporal Artery Scan Pulse Rate 79 78 Pulse Rate from SpO2 Sensor 78 Respiratory Rate 22 22 Respiratory Effort / Characteristics Non-Labored Respiratory Depth Normal Blood Pressure 147/90 H 128/70 Blood Pressure Mean 109 95 Pulse Oximetry 92 92 92 Oxygen Delivery Method Room Air Room Air Sepsis Recent Fever Within 48 Hours No Sepsis New/Unexplained Change in Mental Status No Sepsis Action Taken by Nursing No Action Required 06/26/20 10:22 06/26/20 10:30 06/26/20 11:00 Temperature Temperature Source Pulse Rate 77 75 Pulse Rate from SpO2 Sensor 77 75 Respiratory Rate 22 18 Respiratory Effort / Characteristics Respiratory Depth Blood Pressure 122/74 Blood Pressure Mean 91 Pulse Oximetry 92 92 92 Oxygen Delivery Method Room Air Sepsis Recent Fever Within 48 Hours Sepsis New/Unexplained Change in Mental Status Sepsis Action Taken by [facility] Medications Current Medication List: was personally reviewed by me Laboratory Data Attestation: I reviewed the patient's lab results. Result diagrams: 06/26/20 09:55 06/26/20 09:55 Lab Results 06/26/20 06/26/20 06/26/20 Range/Units 09:55 09:55 09:55 WBC 4.88 (4.8-10.8) K/uL RBC 4.38 L (4.7-6.1) M/uL Hgb 14.2 (14.0-18.0) g/dL Hct 40.0 L (42-52) % MCV 91.3 (80-100) fL MCH 32.4 (25-34) pg MCHC 35.5 (32-36) g/dL RDW Std Deviation 44.3 (36.4-46.3) fL RDW Coeff of Frank 13.3 (11.5-14.5) % Plt Count 143 (130-400) K/uL MPV 9.5 (7.4-10.4) fL Immature Gran % (Auto) 0.0 % Neut % (Auto) 81.2 % Lymph % (Auto) 11.9 % Menard % (Auto) 5.5 % Eos % (Auto) 1.2 % Baso % (Auto) 0.2 % Neut # (Auto) 3.96 (1.4-6.5) K/uL Lymph # (Auto) 0.58 L (1.2-3.4) K/uL [place]ard # (Auto) 0.27 (0.11-0.59) K/uL Eos # (Auto) 0.06 (0-0.5) K/uL Baso # (Auto) 0.01 (0-0.2) K/uL Immature Gran # (Auto) 0.00 (0.00-0.02) K/uL Sodium 122 L (136-145) mmol/L Potassium 4.4 (3.5-5.1) mmol/L Chloride 94 L (98-107) mmol/L Carbon Dioxide 19 L (21-32) mmol/L Anion Gap 9.0 (3-11) BUN 41 H (7-18) mg/dl Creatinine 1.62 H (0.6-1.4) mg/dl Est Cr Clr Drug Dosing Not Reportable Est GFR ( Amer) 49.5 Est GFR (Non-Af Amer) 42.7 BUN/Creatinine Ratio 25.0 H (10-20) Glucose 132 H (70-99) mg/dl Lactate 1.7 (0.4-2.0) mmol/L Calcium 8.3 L (8.5-10.1) mg/dl Magnesium 1.9 (1.8-2.4) mg/dl Total Bilirubin 0.7 (0.2-1) mg/dl AST 44 H (15-37) U/L ALT 26 (12-78) U/L Alkaline Phosphatase 84 (45-117) U/L Troponin I 0.020 (0-0.045) ng/ml NT-Pro-B Natriuret Pep (0-900) pg/ml Total Protein 8.1 (6.4-8.2) gm/dl Albumin 3.2 L (3.4-5.0) gm/dl Globulin 4.9 H (2.5-4.0) gm/dl Albumin/Globulin Ratio 0.7 L (0.9-2) TSH 1.180 (0.300-4.500) uIu/ml Urine Color Urine Appearance (Clear) Urine pH (4.5-7.5) Ur Specific [place] (1.000-1.030) Urine Protein (Negative) Urine Glucose (UA) (Negative) Urine Ketones (Negative) Urine Blood (Negative) Urine Nitrite (Negative) Urine Bilirubin (Negative) Urine Urobilinogen (Negative) Ur Leukocyte Esterase (Negative) Urine WBC (Auto) (0-5) /hpf Urine RBC (Auto) (0-4) /hpf U Hyaline Cast (Auto) (0-5) /lpf U Epithel Cells (Auto) (0-5) /lpf Urine Bacteria (Auto) (Negative) COVID-19 Eval Order Influ A Molecular Assay (Negative) Influ B Molecular Assay (Negative) SARS-CoV-2, RNA, NAAT (NEGATIVE) 06/26/20 06/26/20 06/26/20 Range/Units 09:55 10:00 10:00 WBC (4.8-10.8) K/uL RBC (4.7-6.1) M/uL Hgb (14.0-18.0) g/dL Hct (42-52) % MCV (80-100) fL MCH (25-34) pg MCHC (32-36) g/dL RDW Std Deviation (36.4-46.3) fL RDW Coeff of Frank (11.5-14.5) % Plt Count (130-400) K/uL MPV (7.4-10.4) fL Immature Gran % (Auto) % Neut % (Auto) % Lymph % (Auto) % [place] % (Auto) % Eos % (Auto) % Baso % (Auto) % Neut # (Auto) (1.4-6.5) K/uL Lymph # (Auto) (1.2-3.4) K/uL [place] # (Auto) (0.11-0.59) K/uL Eos # (Auto) (0-0.5) K/uL Baso # (Auto) (0-0.2) K/uL Immature Gran # (Auto) (0.00-0.02) K/uL Sodium (136-145) mmol/L Potassium (3.5-5.1) mmol/L Chloride (98-107) mmol/L Carbon Dioxide (21-32) mmol/L Anion Gap (3-11) BUN (7-18) mg/dl Creatinine (0.6-1.4) mg/dl Est Cr Clr Drug Dosing Est GFR ( Amer) Est GFR (Non-Af Amer) BUN/Creatinine Ratio (10-20) Glucose (70-99) mg/dl Lactate (0.4-2.0) mmol/L Calcium (8.5-10.1) mg/dl Magnesium (1.8-2.4) mg/dl Total Bilirubin (0.2-1) mg/dl AST (15-37) U/L ALT (12-78) U/L Alkaline Phosphatase (45-117) U/L Troponin I (0-0.045) ng/ml NT-Pro-B Natriuret Pep 199 (0-900) pg/ml Total Protein (6.4-8.2) gm/dl Albumin (3.4-5.0) gm/dl Globulin (2.5-4.0) gm/dl Albumin/Globulin Ratio (0.9-2) TSH (0.300-4.500) uIu/ml Urine Color Urine Appearance (Clear) Urine pH (4.5-7.5) Ur Specific [place] (1.000-1.030) Urine Protein (Negative) Urine Glucose (UA) (Negative) Urine Ketones (Negative) Urine Blood (Negative) Urine Nitrite (Negative) Urine Bilirubin (Negative) Urine Urobilinogen (Negative) Ur Leukocyte Esterase (Negative) Urine WBC (Auto) (0-5) /hpf Urine RBC (Auto) (0-4) /hpf U Hyaline Cast (Auto) (0-5) /lpf U Epithel Cells (Auto) (0-5) /lpf Urine Bacteria (Auto) (Negative) COVID-19 [facility] A Molecular Assay Negative (Negative) Influ B Molecular Assay Negative (Negative) SARS-CoV-2, RNA, NAAT (NEGATIVE) 06/26/20 06/26/20 Range/Units 10:00 11:12 WBC (4.8-10.8) K/uL RBC (4.7-6.1) M/uL Hgb (14.0-18.0) g/dL Hct (42-52) % MCV (80-100) fL MCH (25-34) pg MCHC (32-36) g/dL RDW Std Deviation (36.4-46.3) fL RDW Coeff of Frank (11.5-14.5) % Plt Count (130-400) K/uL MPV (7.4-10.4) fL Immature Gran % (Auto) % Neut % (Auto) % Lymph % (Auto) % [place]ard % (Auto) % Eos % (Auto) % Baso % (Auto) % Neut # (Auto) (1.4-6.5) K/uL Lymph # (Auto) (1.2-3.4) K/uL [place] # (Auto) (0.11-0.59) K/uL Eos # (Auto) (0-0.5) K/uL Baso # (Auto) (0-0.2) K/uL Immature Gran # (Auto) (0.00-0.02) K/uL Sodium (136-145) mmol/L Potassium (3.5-5.1) mmol/L Chloride (98-107) mmol/L Carbon Dioxide (21-32) mmol/L Anion Gap (3-11) BUN (7-18) mg/dl Creatinine (0.6-1.4) mg/dl Est Cr Clr Drug Dosing Est GFR ( Amer) Est GFR (Non-Af Amer) BUN/Creatinine Ratio (10-20) Glucose (70-99) mg/dl Lactate (0.4-2.0) mmol/L Calcium (8.5-10.1) mg/dl Magnesium (1.8-2.4) mg/dl Total Bilirubin (0.2-1) mg/dl AST (15-37) U/L ALT (12-78) U/L Alkaline Phosphatase (45-117) U/L Troponin I (0-0.045) ng/ml NT-Pro-B Natriuret Pep (0-900) pg/ml Total Protein (6.4-8.2) gm/dl Albumin (3.4-5.0) gm/dl Globulin (2.5-4.0) gm/dl Albumin/Globulin Ratio (0.9-2) TSH (0.300-4.500) uIu/ml Urine Color Yellow Urine Appearance Clear (Clear) Urine pH 6.0 (4.5-7.5) Ur Specific [place] 1.007 (1.000-1.030) Urine Protein Negative (Negative) Urine Glucose (UA) Negative (Negative) Urine Ketones Negative (Negative) Urine Blood Trace H (Negative) Urine Nitrite Negative (Negative) Urine Bilirubin Negative (Negative) Urine Urobilinogen Negative (Negative) Ur Leukocyte Esterase 1+ H (Negative) Urine WBC (Auto) 5-10 H (0-5) /hpf Urine RBC (Auto) 0-4 (0-4) /hpf U Hyaline Cast (Auto) 0 (0-5) /lpf U Epithel Cells (Auto) 20-30 H (0-5) /lpf Urine Bacteria (Auto) Negative (Negative) COVID-19 Eval Order Influ A Molecular Assay (Negative) Influ B Molecular Assay (Negative) SARS-CoV-2, RNA, NAAT POSITIVE A* (NEGATIVE) Administered Medications Discontinued Medications Dexamethasone (Dexamethasone Sod Inj 10 Mg/Ml Vial) 10 mg IV NOW ONE Stop: 06/26/20 10:59 Last Admin: 06/26/20 11:11 Dose: 10 mg Documented by: [id number] Sodium Chloride (Nss 1000ml) 500 mls @ 999 mls/hr IV .Q31M ONE Stop: 06/26/20 11:28 Last Admin: 06/26/20 11:11 Dose: 999 mls/hr Documented by: [id number] Imaging Data Radiologist's Impression: XR chest 1V portable CLINICAL HISTORY: weakness COMPARISON STUDY: 09/18/2009 FINDINGS: The heart is enlarged. There are multifocal bilateral pulmonary a irspace opacities right greater than left. There are no significant pleural effusions. A multifocal pneumonia is favored over asymmetric pulmonary edema. Correlation with Covid 19 testing results is recommended[ IMPRESSION: 1. Multifocal bilateral pulmonary airspace opacities right greater than left. A multifocal pneumonia is favored over asymmetric pulmonary edema. Clinical and radiographic follow-up are recommended Discharge Plan Visit Data Chief Complaint: Shortness of Breath/Dyspnea Stated Complaint: SOB,DIARRHEA ED Provider: Abraham Cortez Discharge Problem: SOB (shortness of breath), Pneumonia, COVID-19, Acute hyponatremia Patient Disposition: Admitted As Inpatient Condition: Fair Forms Stand Alone Forms: My [employer] Prescriptions Prescriptions: No Action albuterol sulfate [ProAir HFA] 90 mcg/actuation HFA aerosol inhaler 2 puff INHALATION Q6H PRN (Reason: Shortness Of Breath) Qty: 8.5 RF: 5 fluticasone propion-salmeterol [Advair Diskus] 250-50 mcg/dose blister with device 1 inh INHALATION BID Qty: 60 RF: 5 colchicine 0.6 mg capsule 0.6 mg PO BID Qty: 60 RF: 2 metoprolol succinate 100 mg tablet extended release 24 hr 100 mg PO QAM Qty: 90 RF: 3 varicella-zoster gE vac,2 of 2 50 mcg suspension for reconstitution 0.5 ml IM .INJECT 0.5 ML Once A Qty: 0.5 RF: 0 cholecalciferol (vitamin D3) [Vitamin D3] 2,000 unit capsule 2,000 unit PO HS RF: 0 fluticasone propionate [Flonase Allergy Relief] 50 mcg/actuation spray,suspension 1 spray INTRANASAL QAM RF: 0 atorvastatin 10 mg tablet 10 mg PO QAM RF: 0 triamterene-hydrochlorothiazid 75-50 mg tablet 0.5 tab PO QAM RF: 0 lisinopril 40 mg tablet 40 mg PO QAM RF: 0 metformin 750 mg tablet extended release 24 hr 750 mg PO QDD RF: 0 testosterone [AndroGel] 20.25 mg/1.25 gram (1.62 %) gel in metered-dose pump 2 pump TRANSDERMAL QAM RF: 0 magnesium 200 mg Tablet 400 mg PO QAM RF: 0 Referrals Referrals: Trevon Arellano DO [Primary Care Provider] - Discharge Problem: Pneumonia Qualifiers: Pneumonia type: due to unspecified organism Laterality: bilateral Lung location: unspecified part of lung Qualified Code(s): J18.9 - Pneumonia, unspecified organism
[2020-06-26 10:28] LABS: Basophils # (auto) 0.01 K/uL (0-0.2); Basophils % (auto) 0.2 %; Eosinophils # (auto) 0.06 K/uL (0-0.5); Eosinophils % (auto) 1.2 %; Hemoglobin 14.2 g/dL (14.0-18.0); Lymphocytes # (auto) 0.58 K/uL (1.2-3.4); Lymphocytes % (auto) 11.9 %; Mean Corpuscular Hemoglobin 32.4 pg (25-34); Mean Corpuscular Hgb Conc 35.5 g/dL (32-36); Mean Corpuscular Volume 91.3 fL (80-100); Mean Platelet Volume 9.5 fL (7.4-10.4); Monocytes # (auto) 0.27 K/uL (0.11-0.59); Monocytes % (auto) 5.5 %; Neutrophils # (auto) 3.96 K/uL (1.4-6.5); Neutrophils % (auto) 81.2 %; Platelet Count 143 K/uL (130-400); RDW Coefficient of Variation 13.3 % (11.5-14.5); RDW Standard Deviation 44.3 fL (36.4-46.3); Red Blood Count 4.38 M/uL (4.7-6.1); White Blood Count 4.88 K/uL (4.8-10.8)
--- NOTE | 2020-06-26 10:41 | XRay Report ---
XR chest 1V portable CLINICAL HISTORY: weakness COMPARISON STUDY: 09/18/2009 FINDINGS: The heart is enlarged. There are multifocal bilateral pulmonary airspace opacities right gr eater than left. There are no significant pleural effusions. A multifocal pneumonia is favored over a symmetric pulmonary edema. Correlation with Covid 19 testing results is recommended[ IMPRESSION: 1. Multifocal bilateral pulmonary airspace opacities right greater than left. A multifocal pneumonia is favored over asymmetric pulmonary edema. Clinical and radiographic follow-up are recommended ACT 112: Negative or not required by law. Electronically signed by: Chase Swanson M.D. 06/26/2020 10:40 AM
[2020-06-26 10:45] LABS: Influenza A virus by PCR Negative (Negative); Influenza B virus by PCR Negative (Negative)
[2020-06-26 10:51] LABS: Albumin Globulin Ratio 0.7 (0.9-2); Albumin Level 3.2 gm/dl (3.4-5.0); Aspartate Aminotransferase 44 U/L (15-37); Bilirubin,Total 0.7 mg/dl (0.2-1); Blood Urea Nitrogen 41 mg/dl (7-18); Calcium 8.3 mg/dl (8.5-10.1); Carbon Dioxide 19 mmol/L (21-32); Chloride 94 mmol/L (98-107); Est GFR (African American) 49.5; Est GFR (Non-African American) 42.7; Globulin 4.9 gm/dl (2.5-4.0); Glucose 132 mg/dl (70-99); Potassium 4.4 mmol/L (3.5-5.1); Sodium 122 mmol/L (136-145); Total Protein 8.1 gm/dl (6.4-8.2)
[2020-06-26] MEDS ORDERED: SODIUM CHLORIDE 0.9% 1000ML 500 ML IV ONE (10:58)
[2020-06-26] MEDS ORDERED: DEXAMETHASONE SOD INJ 10 MG/ML VIAL IV ONE (10:58)
[2020-06-26 11:05] LABS: Alanine Aminotransferase 26 U/L (12-78); Alkaline Phosphatase 84 U/L (45-117); Magnesium 1.9 mg/dl (1.8-2.4)
--- NOTE | 2020-06-26 11:28 | Hospitalist Progress Note ---
Date of Service June 26, 2020 Results & Data Results & Data ([facility]) Vital Signs (Past 12 Hours) Vital Signs Temp Pulse Resp BP Pulse Ox 06/26/20 11:00 75 18 92 06/26/20 10:30 77 22 122/74 92 06/26/20 10:22 92 06/26/20 10:20 92 06/26/20 10:13 78 22 128/70 92 06/26/20 09:19 37 C 79 22 147/90 H 92 PG Care Time/CCT Total # of Minutes Spent Total Time Spent with Patient: Total time spent is greater than 50% in coordination of care (as documented) at patient's floor/unit and/or counseling patient: Coding
[2020-06-26 11:45] LABS: Appearance Urine Clear (Clear); Bacteria Urine Automated Negative (Negative); Bilirubin Urine Negative (Negative); Blood Urine Trace (Negative); Cast Urine Automated 0 /lpf (0-5); Color Urine Yellow; Epithelial Cell Urine Auto 20-30 /lpf (0-5); Glucose Urine UA Negative (Negative); Ketones Urine Negative (Negative); Leukocyte Esterase Urine 1+ (Negative); Nitrite Urine Negative (Negative); Protein Urine Negative (Negative); RBC Urine Automated 0-4 /hpf (0-4); Specific Gravity Urine 1.007 (1.000-1.030); Urobilinogen Urine Negative (Negative)
--- NOTE | 2020-06-26 12:14 | History & Physical Report ---
Date of Service June 26, 2020 Assessment & Plan (1) Pneumonia due to COVID-19 virus: Patient thus far without O2 requirement, but O2 sats hovering 91-92% in room air while in the ER and they quickly drop to upper 80s with minimal activity. He is visibly dyspneic with tachypnea. Radiographically he has significant COVID-19 pneumonia. Given his comorbidities he has potential for rapid clinical decline. I would estimate he has been ill for about 8 days or slightly longer. We discussed treatment modalities. We discussed convalescent plasma in detail. I believe we are likely still in the window for such and will transfuse plasma when available. FDA patient information sheet given to patient. Consent signed. Will continue decadron 6mg IV/PO x 9 additional days starting in am. Received 10mg in ER today. Will hold off on IV remdesivir given where he is in his illness course and the acute kidney injury. Could reconsider this if he worsens overnight and if there is improvement in renal function. Pulmonary toilet with mucinex, albuterol scheduled q6h, and incentive cricket/f lutter valve. O2 as needed to maintain sats >90%. I am concerned he will desat with sleeping. I do not see evidence of complicating decompensated CHF at this time. Check CPK, d-dimer, and procal. If latter is high consider IV antibiotics as well. (2) Acute hyponatremia: Clinically volume depleted from diarrhea from COVID along with ongoing HCTZ use at home. Check urine Na and urine Osm. NS x 2 liters. Repeat BMP at 1600 this evening and then again in am. Hold HCTZ. (3) Acute kidney injury: 2nd to volume depletion/diarrhea/poor oral intake vs COVID-19 itself vs KIRSTEN use vs combination of factors. Hydrate, repeat BMP later today and again in am. (4) Asthma: No significant wheezing on exam but bronchodilators still may help his symptoms. Schedule the albuterol q6h. Continue usual inhalers from home. Pulmonary toilet. (5) Chronic systolic (congestive) heart failure: EF 40-45% on most recent echo. Cont metoprolol but due to reduced BP will cut dose from 100mg/day to 50mg/day. Hold KIRSTEN due to LOLITA. Appears volume contracted at this time. I do not believe cxr findings are from CHF. (6) Nonischemic cardiomyopathy: Cath [address] Bull with normal coronaries. (7) Hypertension: Hold KIRSTEN. Reduce metoprolol xl dose. Hold HCTZ/triamterene. (8) Dyslipidemia: Hold lipitor due to mild AST elevation. If AST remains stable on serial labs would then resume it. (9) Type 2 diabetes mellitus: Hold oral agents. BSGs ac/hs. DM diet. Lantus at HS. novolog correction and carb coverage. (10) Morbid obesity: (11) Elevated AST (SGOT): Likely 2nd to COVID-19. Repeat AST/ALT in am. (12) LBBB (left bundle branch block): Not due to CAD -- normal coronary arteries on heart cath 2017 at [facility]. (13) DVT prophylaxis: Due to high risk of VTE with COVID-19 will use higher dose prophylaxis -- lovenox 40mg BID. will update by phone. History of Present Illness Chief Complaint: dyspnea, diarrhea, cough Primary Care Provider: Trevon Arellano, 69yo male with history of nonischemic cardiomyopathy with EF 40-45%, asthma, HTN, T2DM, hyperlipidemia, and morbid obesity who presents from home with various symptoms dating back to about 06/14-06/15 or shortly thereafter. Since that time he has had worsening cough with sputum production, dyspnea at rest and with exertion, poor appetite, fatigue, and severe diarrhea. Latter has been present 3-4 times each day and for about 8 days straight. Stools are watery. His mouth is dry and he reports feeling thirsty. No nausea or emesis. No myalgias or arthralgias. is sick with cold/cough symptoms. She has not been tested for COVID. In the ER he was told his COVID-19 test was positive and feels that he may have been exposed to his nephew who made a visit to his home around 06/14 or 06/15. He and his have been sheltering in place for most of the pandemic and wearing masks faithfully. Allergies Allergy/AdvReac Type Severity Reaction Status Date / Time aspirin AdvReac Mild REGULAR Verified 06/26/20 10:43 DOSE -> NOSEBLEED Home Medications Medication Instructions Recorded Confirmed Type magnesium 400 mg PO QAM 04/23/18 06/26/20 History varicella-zoster gE vac,2 of 2 50 0.5 ml IM .INJECT 0.5 ML Once A 01/24/19 02/07/20 History mcg IM suspension #0.5 ea cholecalciferol (vitamin D3) 50 2,000 unit PO HS 01/31/19 06/26/20 History mcg (2,000 unit) capsule fluticasone propionate 50 1 spray INTRANASAL QAM 01/31/19 06/26/20 History mcg/actuation nasal spray,suspension albuterol sulfate 90 mcg/actuation 2 puff INHALATION Q6H PRN #8.5 gm 11/02/19 06/26/20 Rx aerosol inhaler fluticasone 250 mcg-salmeterol 50 1 inh INHALATION BID #60 ea 12/08/19 06/26/20 Rx mcg/dose blistr powdr for inhalation colchicine 0.6 mg capsule 0.6 mg PO BID #60 cap 03/27/20 06/26/20 Rx metoprolol succinate 100 mg 100 mg PO QAM #90 tab 06/18/20 06/26/20 Rx tablet,extended release 24 hr atorvastatin 10 mg PO QAM 06/26/20 06/26/20 History lisinopril 40 mg PO QAM 06/26/20 06/26/20 History metformin 750 mg PO QDD 06/26/20 06/26/20 History testosterone [AndroGel] 2 pump TRANSDERMAL QAM 06/26/20 06/26/20 History triamterene-hydrochlorothiazid 0.5 tab PO QAM 06/26/20 06/26/20 History Past Med/Surg History Medical History Asthma Cellulitis Diabetes mellitus, type 2 Duodenal ulcer Dyslipidemia GERD (gastroesophageal reflux disease) Hyperlipidemia Hypertension Kidney stones Nonischemic cardiomyopathy Osteoarthritis Poor historian Squamous cell carcinoma of skin Superficial thrombophlebitis Surgical History History of cardiac cath APR 2017 - [facility] (BELIEVES CATH DONE BC OF [place] ARRHYTHMIA - UNSURE OF SPECIFICS) - NO STENTS/ANGIOPLASTY - FOLLOWS W/ DR. BULL History of cataract surgery History of colonoscopy History of esophagogastroduodenoscopy (EGD) last EGD/Colonoscopy on 10/28/17 under sedation without complications History of repair of rotator cuff LEFT SHOULDER 06/2017-glidescope 4, #7.5 ETT without problem History of tooth extraction Hx of tonsillectomy Family History (Updated 06/26/20 @ 12:11 by Rafi Webber) Brother Colorectal cancer Mother Liver cancer Father , cancer with mets to bone No problems noted. 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 How many Children do You have: 0 Feels Safe at Home: Yes Seatbelt Use: always Assistive Devices: Denture - Upper, Denture - Lower and Glasses Review of Systems Constitutional: + fatigue, + weakness, + anorexia and + weight loss (2 pounds ); no fever, no chills and no body aches Eyes: no worsening vision Ear, Nose, Mouth, Throat: + sore throat; no nasal congestion Respiratory: + cough, + dyspnea and + sputum production Cardiovascular: as per Subjective / HPI, + chest pain (tightness ), + orthopnea (sleeping in recliner for 3-4 nights due to dyspnea) and + paroxysmal nocturnal dyspnea; no edema Gastrointestinal: + diarrhea/loose stools; no abdominal pain, no nausea and no vomiting Genitourinary: no dysuria Musculoskeletal: no myalgia Integumentary: + rash (face - seborrhea) Neurologic: no loss of sensation Psychiatric: no depression Endocrine: BSGs at home <150 Hematologic / Lymphatic: no easy bruising Physical Exam Constitutional: + acute distress (visibly dyspneic; tachypneic; with minimal movement has retractions) and + morbidly obese; no altered mental status Eyes: + conjunctival abnormality (injected mildly) and PERRL ENMT: Mouth: + oropharynx abnormality (erythematous ) and + dry oral mucous membranes Neck: trachea midline, no thyromegaly Respiratory: + retractions (intermittent (w/ movement)), + cough, able to speak in complete sentences and + tachypneic Auscultation: + rales (b/l bases); no wheezes Cardiovascular: Rate/Rhythm: regular rate and regular rhythm Heart Sounds: normal S1 and normal S2; no murmur Vessels: posterior tibial pulses present and dorsalis pedis pulses present; no JVD Extremities: no edema heart tones are distant Gastrointestinal (Abdomen): normal bowel sounds, soft, nontender, no hepatosplenomegaly Musculoskeletal: no cyanosis or clubbing, extremities motor strength 5/5 Skin: no rashes, warm and dry Neurologic: moves all extremities; no focal motor deficits Psychiatric: A+Ox3, euthymic affect Lymphatic: no cervical lymphadenopathy Results & Data Results & Data ([facility]) Vital Signs (Past 12 Hours) Vital Signs Temp Pulse Resp BP Pulse Ox 06/26/20 11:00 75 18 92 06/26/20 10:30 77 22 122/74 92 06/26/20 10:22 92 06/26/20 10:20 92 06/26/20 10:13 78 22 128/70 92 06/26/20 09:19 37 C 79 22 147/90 H 92 with any movement on the bed his O2 sats drop quickly to 88/89% in room air Laboratory Results Laboratory Results - last 24 hr 06/26/20 06/26/20 06/26/20 09:55 09:55 09:55 WBC 4.88 RBC 4.38 L Hgb 14.2 Hct 40.0 L MCV 91.3 MCH 32.4 MCHC 35.5 RDW Std Deviation 44.3 RDW Coeff of Frank 13.3 Plt Count 143 MPV 9.5 Immature Gran % (Auto) 0.0 Neut % (Auto) 81.2 Lymph % (Auto) 11.9 [place] % (Auto) 5.5 Eos % (Auto) 1.2 Baso % (Auto) 0.2 Neut # (Auto) 3.96 Lymph # (Auto) 0.58 L [place] # (Auto) 0.27 Eos # (Auto) 0.06 Baso # (Auto) 0.01 Immature Gran # (Auto) 0.00 Sodium 122 L Potassium 4.4 Chloride 94 L Carbon Dioxide 19 L Anion Gap 9.0 BUN 41 H Creatinine 1.62 H Est Cr Clr Drug Dosing Not Reportable Est GFR ( Amer) 49.5 Est GFR (Non-Af Amer) 42.7 BUN/Creatinine Ratio 25.0 H Glucose 132 H Lactate 1.7 Calcium 8.3 L Magnesium 1.9 Total Bilirubin 0.7 AST 44 H ALT 26 Alkaline Phosphatase 84 Troponin I 0.020 NT-Pro-B Natriuret Pep Total Protein 8.1 Albumin 3.2 L Globulin 4.9 H Albumin/Globulin Ratio 0.7 L TSH 1.180 Urine Color Urine Appearance Urine pH Ur Specific [place] Urine Protein Urine Glucose (UA) Urine Ketones Urine Blood Urine Nitrite Urine Bilirubin Urine Urobilinogen Ur Leukocyte Esterase Urine WBC (Auto) Urine RBC (Auto) U Hyaline Cast (Auto) U Epithel Cells (Auto) Urine Bacteria (Auto) Urine Osmolality Ur Random Sodium COVID-19 Eval Order Influ A Molecular Assay Influ B Molecular Assay SARS-CoV-2, RNA, NAAT 06/26/20 06/26/20 06/26/20 09:55 10:00 10:00 WBC RBC Hgb Hct MCV MCH MCHC RDW Std Deviation RDW Coeff of Frank Plt Count MPV Immature Gran % (Auto) Neut % (Auto) Lymph % (Auto) [place] % (Auto) Eos % (Auto) Baso % (Auto) Neut # (Auto) Lymph # (Auto) [place] # (Auto) Eos # (Auto) Baso # (Auto) Immature Gran # (Auto) Sodium Potassium Chloride Carbon Dioxide Anion Gap BUN Creatinine Est Cr Clr Drug Dosing Est GFR ( Amer) Est GFR (Non-Af Amer) BUN/Creatinine Ratio Glucose Lactate Calcium Magnesium Total Bilirubin AST ALT Alkaline Phosphatase Troponin I NT-Pro-B Natriuret Pep 199 Total Protein Albumin Globulin Albumin/Globulin Ratio TSH Urine Color Urine Appearance Urine pH Ur Specific [place] Urine Protein Urine Glucose (UA) Urine Ketones Urine Blood Urine Nitrite Urine Bilirubin Urine Urobilinogen Ur Leukocyte Esterase Urine WBC (Auto) Urine RBC (Auto) U Hyaline Cast (Auto) U Epithel Cells (Auto) Urine Bacteria (Auto) Urine Osmolality Ur Random Sodium COVID-19 Eval [facility] Influ A Molecular Assay Negative Influ B Molecular Assay Negative SARS-CoV-2, RNA, NAAT 06/26/20 06/26/20 06/26/20 10:00 11:12 11:12 WBC RBC Hgb Hct MCV MCH MCHC RDW Std Deviation RDW Coeff of Frank Plt Count MPV Immature Gran % (Auto) Neut % (Auto) Lymph % (Auto) [place] % (Auto) Eos % (Auto) Baso % (Auto) Neut # (Auto) Lymph # (Auto) [place] # (Auto) Eos # (Auto) Baso # (Auto) Immature Gran # (Auto) Sodium Potassium Chloride Carbon Dioxide Anion Gap BUN Creatinine Est Cr Clr Drug Dosing Est GFR ( Amer) Est GFR (Non-Af Amer) BUN/Creatinine Ratio Glucose Lactate Calcium Magnesium Total Bilirubin AST ALT Alkaline Phosphatase Troponin I NT-Pro-B Natriuret Pep Total Protein Albumin Globulin Albumin/Globulin Ratio TSH Urine Color Yellow Urine Appearance Clear Urine pH 6.0 Ur Specific [place] 1.007 Urine Protein Negative Urine Glucose (UA) Negative Urine Ketones Negative Urine Blood Trace H Urine Nitrite Negative Urine Bilirubin Negative Urine Urobilinogen Negative Ur Leukocyte Esterase 1+ H Urine WBC (Auto) 5-10 H Urine RBC (Auto) 0-4 U Hyaline Cast (Auto) 0 U Epithel Cells (Auto) 20-30 H Urine Bacteria (Auto) Negative Urine Osmolality 222 L Ur Random Sodium COVID-19 Eval Order Influ A Molecular Assay Influ B Molecular Assay SARS-CoV-2, RNA, NAAT POSITIVE A* 06/26/20 11:12 WBC RBC Hgb Hct MCV MCH MCHC RDW Std Deviation RDW Coeff of Frank Plt Count MPV Immature Gran % (Auto) Neut % (Auto) Lymph % (Auto) [place] % (Auto) Eos % (Auto) Baso % (Auto) Neut # (Auto) Lymph # (Auto) [place] # (Auto) Eos # (Auto) Baso # (Auto) Immature Gran # (Auto) Sodium Potassium Chloride Carbon Dioxide Anion Gap BUN Creatinine Est Cr Clr Drug Dosing Est GFR ( Amer) Est GFR (Non-Af Amer) BUN/Creatinine Ratio Glucose Lactate Calcium Magnesium Total Bilirubin AST ALT Alkaline Phosphatase Troponin I NT-Pro-B Natriuret Pep Total Protein Albumin Globulin Albumin/Globulin Ratio TSH Urine Color Urine Appearance Urine pH Ur Specific [place] Urine Protein Urine Glucose (UA) Urine Ketones Urine Blood Urine Nitrite Urine Bilirubin Urine Urobilinogen Ur Leukocyte Esterase Urine WBC (Auto) Urine RBC (Auto) U Hyaline Cast (Auto) U Epithel Cells (Auto) Urine Bacteria (Auto) Urine Osmolality Ur Random Sodium 29 COVID-19 Eval Order Influ A Molecular Assay Influ B Molecular Assay SARS-CoV-2, RNA, NAAT Diagnostic Findings 1. cxr: IMPRESSION: 1. Multifocal bilateral pulmonary airspace opacities right greater than left. A multifocal pneumonia is favored over asymmetric pulmonary edema. Clinical and radiographic follow-up are recommended. 2. EKG: my reading - NSR, LBBB, Q's anterior leads; in comparison to 2018 EKG - had incomplete LBBB at that time otherwise unchanged Medications Administered Dexamethasone 10mg IV x 1 NSS bolus Code Status & VTE Plan Code Status full VTE Prophylaxis Plan VTE Prophylaxis will be ordered: Yes PG Care Time/CCT Total # of Minutes Spent Total Time Spent with Patient: Total time spent is greater than 50% in coordination of care (as documented) at patient's floor/unit and/or counseling patient: Coding Level of Care Code 83815 Initial Inpt Care Lvl 3 Diagnoses Pneumonia due to COVID-19 virus U07.1; J12.89 Acute hyponatremia E87.1 Acute kidney injury N17.9 Asthma J45.40 Asthma severity: moderate Asthma persistence: persistent Asthma complication type: unspecified Chronic systolic (congestive) heart failure I50.22 Nonischemic cardiomyopathy I42.8 Hypertension I10 Hypertension type: essential hypertension Dyslipidemia E78.5 Type 2 diabetes mellitus E11.9 Morbid obesity E66.01 Elevated AST (SGOT) R74.01 LBBB (left bundle branch block) I44.7 DVT prophylaxis Z29.9 (1) Hypertension Hypertension type: essential hypertension Qualified Code(s): I10 - Essential (primary) hypertension (2) Asthma Asthma severity: moderate Asthma persistence: persistent Asthma complication type: unspecified Qualified Code(s): J45.40 - Moderate persistent asthma, uncomplicated
[2020-06-26 13:25] LABS: D Dimer 2030 ug/L FEU (0-500)
--- NOTE | 2020-06-26 15:31 | Electrocardiogram Report ---
Test Reason : Blood Pressure : / mmHG Vent. Rate : 078 BPM Atrial Rate : 078 BPM P-R Int : 208 ms QRS Dur : 150 ms QT Int : 430 ms P-R-T Axes : 045 -86 069 degrees QTc Int : 490 ms Normal sinus rhythm Left axis deviation Non-specific intra-ventricular conduction block Abnormal ECG When compared with ECG of 20-OCT-2017 16:23, QRS duration has increased Inferior infarct is now Present QT has lengthened Confirmed by Hunter Kraus ([id number]) on 06/26/2020 3:30:59 PM Referred By: Trevon Arellano Confirmed By:Doc Kraus
[2020-06-26] MEDS ORDERED: ACETAMINOPHEN 325 MG TAB PO PRN (16:00)
[2020-06-26] MEDS ORDERED: ONDANSETRON INJ 2 MG/ML 2 ML VIAL IV PRN (16:00)
[2020-06-26] MEDS ORDERED: GLUCOSE 40% GEL 15 GM TUBE PO PRN (16:15)
[2020-06-26] MEDS ORDERED: GLUCAGON FOR INJ 1 MG VIAL IM PRN (16:15)
[2020-06-26] MEDS ORDERED: GLUCOSE 10 TABS/TUBE PO PRN (16:15)
[2020-06-26] MEDS ORDERED: DEXTROSE 50% 50 ML SYRINGE IV PRN (16:15)
[2020-06-26] MEDS ORDERED: CARBOHYDRATES FOR HYPOGLYCEMIA PO PRN (16:15)
[2020-06-26] MEDS ORDERED: INFLUENZA ADMINISTRATION CHARGE ONE (16:20)
[2020-06-26] MEDS ORDERED: INFLUENZA VIRUS QUAD VACCINE 0.5 ML SYR IM ONE (16:20)
[2020-06-26] MEDS ORDERED: INFLUENZA VACCINE HIGH DOSE 65+ 0.7 ML SYR IM ONE (17:00)
[2020-06-26] MEDS: SODIUM CHLORIDE 0.9% 1000ML 1,000 ML IV SCH (17:46)
[2020-06-26] MEDS: INSULIN ASPART 100 UNITS/ML 3 ML PEN SC SCH ×2 (18:10→21:23)
[2020-06-26 21:07] LABS: Calcium 8.6 mg/dl (8.5-10.1); Creatinine Clr Calc Pharmacy 50.8 ml/min; Est GFR (African American) 44.7; Est GFR (Non-African American) 38.6
[2020-06-26] MEDS: ENOXAPARIN INJ 40 MG/0.4 ML SYR SQ SCH (21:21)
[2020-06-26] MEDS: ALBUTEROL HFA 8 GM INHALER INH SCH ×2 (21:21→22:27)
[2020-06-26] MEDS: guaiFENesin 600 MG TABCR PO SCH (21:22)
[2020-06-26] MEDS: CHOLECALCIFEROL 1,000 UNITS 25 MCG TAB PO SCH (21:22)
[2020-06-26] MEDS: INSULIN GLARGINE SOLOSTAR 100 UNITS/ML 3 ML PEN SC SCH (21:22)
[2020-06-27] MEDS: ALBUTEROL HFA 8 GM INHALER INH SCH ×4 (01:24→20:24)
[2020-06-27] MEDS: SODIUM CHLORIDE 0.9% 1000ML 1,000 ML IV SCH (05:25)
[2020-06-27 07:14] LABS: Hematocrit (blood only) 38.3 % (42-52); Hemoglobin 13.4 g/dL (14.0-18.0); Mean Corpuscular Volume 91.4 fL (80-100); Mean Platelet Volume 9.3 fL (7.4-10.4); Platelet Count 145 K/uL (130-400); RDW Coefficient of Variation 13.3 % (11.5-14.5); RDW Standard Deviation 44.5 fL (36.4-46.3); Red Blood Count 4.19 M/uL (4.7-6.1); White Blood Count 2.74 K/uL (4.8-10.8)
[2020-06-27 07:47] LABS: BUN Creatinine Ratio 26.8 (10-20); Calcium 9.3 mg/dl (8.5-10.1); Est GFR (African American) 55.2; Est GFR (Non-African American) 47.6; Potassium 4.8 mmol/L (3.5-5.1)
[2020-06-27] MEDS: INSULIN ASPART 100 UNITS/ML 3 ML PEN SC SCH ×4 (08:30→20:37)
[2020-06-27] MEDS: dexAMETHasone 6 MG in SYRINGE 0 ML IV SCH (08:40)
[2020-06-27] MEDS: guaiFENesin 600 MG TABCR PO SCH ×2 (08:40→20:32)
[2020-06-27] MEDS: FLUTICASONE/VILANTEROL 200/25MCG 14 PUFFS/INHALER INH SCH (08:40)
[2020-06-27] MEDS: METOPROLOL SUCC 50MG EXT REL TAB PO SCH (08:41)
[2020-06-27] MEDS: ENOXAPARIN INJ 40 MG/0.4 ML SYR SQ SCH ×2 (08:41→20:31)
[2020-06-27] MEDS: FLUTICASONE PROPIONATE NA SPR 16 GM BTL SCH (08:45)
--- NOTE | 2020-06-27 17:08 | Hospitalist Progress Note ---
Date of Service June 27, 2020 Assessment & Plan (1) Pneumonia due to COVID-19 virus: Symptoms began on 06/15 Upon admission had pulse ox 91-92% in room air while in the ER and they quickly drop to upper 80s with minimal activity. Was tachypneic upon admission which is now resolved Radiographically he has significant COVID-19 pneumonia. -Received convalescent plasma -continue decadron 6mg IV/PO x 10-day course-last dose will be on 07/05 -Not a candidate for IV remdesivir as he is too far out from start of symptoms and had acute kidney injury -Continue pulmonary toilet with mucinex, albuterol scheduled q6h, and incentive cricket/flutter valve. -O2 as needed to maintain sats >90%. -Procalcitonin is negative-no need for antibiotics -Much improved today (2) Acute hyponatremia: Sodium 122 on admission Clinically volume depleted from diarrhea from COVID along with ongoing HCTZ use at home. urine Na and urine Osm consistent with most likely dehydration but complicated by HCTZ use NS x 2 liters was given and sodium improved to 128. He is now drinking plenty of p.o. fluids and diarrhea has stopped Continue to hold HCTZ. Follow BMP in the morning (3) Acute kidney injury: Creatinine down to 1.48 from 1.76 on admission after IV fluid hydration 2nd to volume depletion/diarrhea/poor oral intake vs COVID-19 itself vs ACEi and HCTZ use Follow BMP (4) Asthma: No significant wheezing on exam but bronchodilators still may help his symptoms. Schedule the albuterol q6h. Continue usual inhalers from home. Pulmonary toilet. (5) Chronic systolic (congestive) heart failure: EF 40-45% on most recent echo. Cont metoprolol but due to reduced BP will cut dose from 100mg/day to 50mg/day. Continue to hold KIRSTEN due to LOLITA but can likely restart upon discharge. No longer volume contracted after 2 L IV fluids given Daily weights, strict I's and O's I do not believe cxr findings are from CHF. (6) Nonischemic cardiomyopathy: Cath [address] Warren with normal coronaries. (7) Hypertension: Blood pressures improved, were low on admission Continue to hold KIRSTEN. Reduce metoprolol xl dose. Hold HCTZ/triamterene. (8) Dyslipidemia: Held lipitor due to mild AST elevation. Okay to restart for tomorrow as AST is minimally elevated at 43 (9) Type 2 diabetes mellitus: Hold oral agents from home. BSGs ac/hs. DM diet. Blood sugars are fairly well controlled without significant hyperglycemia Continue Lantus at HS. novolog correction and carb coverage. (10) Morbid obesity: BMI 43.5 Needs weight loss (11) Elevated AST (SGOT): Likely 2nd to COVID-19. Very minimally elevated (12) LBBB (left bundle branch block): Not due to CAD -- normal coronary arteries on heart cath 2017 at [facility]. (13) DVT prophylaxis: Due to high risk of VTE with COVID-19 will use higher dose prophylaxis -- lovenox 40mg BID. Disposition-much improved, could possibly discharged home tomorrow if sodium and creatinine continue to improve and he is doing well May need a two-step walk test prior to discharge Admission and Anticipated Discharge Date Admission Date: June 26, 2020 Subjective Patient feeling much improved today. Reports "I am 100% better." He has been ambulating the halls without oxygen and reports his pulse ox was 97% when he returned to the room. Has a mild cough with some occasional sputum production. He has had no further diarrhea and is eating all of his meals and feels good. He has been drinking plenty of fluids and reports his urine is clear. Telemetry with sinus bradycardia and normal sinus rhythm with rates in the 50s to 60s, PVCs Review of Systems Review of Systems: All systems reviewed & are unremarkable except as noted in HPI & below Physical Exam Constitutional: WD/WN, vitals as above + morbidly obese Eyes: + anicteric sclerae Neck: trachea midline, no thyromegaly Respiratory: normal respiratory effort Auscultation: + crackles (Mild at the bases); no rhonchi and no wheezes Cardiovascular: RRR, no murmur, no edema Chest (Breasts): Chest: normal inspection of chest Gastrointestinal (Abdomen): normal bowel sounds, soft, nontender, no hepatosplenomegaly Musculoskeletal: Extremities: extremities normal to inspection; no cyanosis and no clubbing Skin: no rashes, warm and dry Neurologic: moves all extremities and awake; no focal motor deficits Psychiatric: A+Ox3, euthymic affect Lymphatic: no lymphedema Results & Data Results & Data ([facility]) Vital Signs (Past 12 Hours) Vital Signs Temp Pulse Pulse Resp BP Pulse Ox 06/27/20 15:50 68 06/27/20 15:41 36.3 C L 59 L 20 131/66 97 06/27/20 12:35 93 06/27/20 11:49 36.8 C 60 18 128/71 93 06/27/20 08:16 83 20 93 06/27/20 08:05 36.8 C 64 18 123/75 96 06/27/20 07:40 79 Laboratory Results 06/27/20 06/27/20 06/27/20 Range/Units 16:24 11:47 08:04 WBC (4.8-10.8) K/uL RBC (4.7-6.1) M/uL Hgb (14.0-18.0) g/dL Hct (42-52) % MCV (80-100) fL MCH (25-34) pg MCHC (32-36) g/dL RDW Std Deviation (36.4-46.3) fL RDW Coeff of Frank (11.5-14.5) % Plt Count (130-400) K/uL MPV (7.4-10.4) fL Sodium (136-145) mmol/L Potassium (3.5-5.1) mmol/L Chloride (98-107) mmol/L Carbon Dioxide (21-32) mmol/L Anion Gap (3-11) BUN (7-18) mg/dl Creatinine (0.6-1.4) mg/dl Est Cr Clr Drug Dosing ml/min Est GFR ( Amer) Est GFR (Non-Af Amer) BUN/Creatinine Ratio (10-20) Glucose (70-99) mg/dl POC Glucose 175 H 160 H 146 H (70-99) mg/dl Calcium (8.5-10.1) mg/dl AST (15-37) U/L ALT (12-78) U/L 06/27/20 06/27/20 06/26/20 Range/Units 06:51 06:51 20:29 WBC 2.74 L (4.8-10.8) K/uL RBC 4.19 L (4.7-6.1) M/uL Hgb 13.4 L (14.0-18.0) g/dL Hct 38.3 L (42-52) % MCV 91.4 (80-100) fL MCH 32.0 (25-34) pg MCHC 35.0 (32-36) g/dL RDW Std Deviation 44.5 (36.4-46.3) fL RDW Coeff of Frank 13.3 (11.5-14.5) % Plt Count 145 (130-400) K/uL MPV 9.3 (7.4-10.4) fL Sodium 128 L 126 L (136-145) mmol/L Potassium 4.8 5.0 (3.5-5.1) mmol/L Chloride 100 96 L (98-107) mmol/L Carbon Dioxide 19 L 20 L (21-32) mmol/L Anion Gap 9.0 10.0 (3-11) BUN 40 H 41 H (7-18) mg/dl Creatinine 1.48 H 1.76 H (0.6-1.4) mg/dl Est Cr Clr Drug Dosing 60.0 50.8 ml/min Est GFR ( Amer) 55.2 44.7 Est GFR (Non-Af Amer) 47.6 38.6 BUN/Creatinine Ratio 26.8 H 23.0 H (10-20) Glucose 151 H 181 H (70-99) mg/dl POC Glucose (70-99) mg/dl Calcium 9.3 8.6 (8.5-10.1) mg/dl AST 43 H (15-37) U/L ALT 26 (12-78) U/L 06/26/20 Range/Units 20:25 WBC (4.8-10.8) K/uL RBC (4.7-6.1) M/uL Hgb (14.0-18.0) g/dL Hct (42-52) % MCV (80-100) fL MCH (25-34) pg MCHC (32-36) g/dL RDW Std Deviation (36.4-46.3) fL RDW Coeff of Frank (11.5-14.5) % Plt Count (130-400) K/uL MPV (7.4-10.4) fL Sodium (136-145) mmol/L Potassium (3.5-5.1) mmol/L Chloride (98-107) mmol/L Carbon Dioxide (21-32) mmol/L Anion Gap (3-11) BUN (7-18) mg/dl Creatinine (0.6-1.4) mg/dl Est Cr Clr Drug Dosing ml/min Est GFR ( Amer) Est GFR (Non-Af Amer) BUN/Creatinine Ratio (10-20) Glucose (70-99) mg/dl POC Glucose 183 H (70-99) mg/dl Calcium (8.5-10.1) mg/dl AST (15-37) U/L ALT (12-78) U/L PG Care Time/CCT Total # of Minutes Spent Total Time Spent with Patient: Total time spent is greater than 50% in coordination of care (as documented) at patient's floor/unit and/or counseling patient: Coding Level of Care Code 13773 Subseq Hosp Care Lvl 3 Diagnoses Pneumonia due to COVID-19 virus U07.1; J12.89 Acute hyponatremia E87.1 Acute kidney injury N17.9 Asthma J45.40 Asthma severity: moderate Asthma persistence: persistent Asthma complication type: unspecified Chronic systolic (congestive) heart failure I50.22 Nonischemic cardiomyopathy I42.8 Hypertension I10 Hypertension type: essential hypertension Dyslipidemia E78.5 Type 2 diabetes mellitus E11.9 Morbid obesity E66.01 Elevated AST (SGOT) R74.01 LBBB (left bundle branch block) I44.7 DVT prophylaxis Z29.9 (1) Asthma Asthma severity: moderate Asthma persistence: persistent Asthma complication type: unspecified Qualified Code(s): J45.40 - Moderate persistent asthma, uncomplicated (2) Hypertension Hypertension type: essential hypertension Qualified Code(s): I10 - Essential (primary) hypertension
[2020-06-27] MEDS: CHOLECALCIFEROL 1,000 UNITS 25 MCG TAB PO SCH (20:31)
[2020-06-27] MEDS: INSULIN GLARGINE SOLOSTAR 100 UNITS/ML 3 ML PEN SC SCH (20:37)
[2020-06-28] MEDS: ALBUTEROL HFA 8 GM INHALER INH SCH ×2 (00:29→08:49)
[2020-06-28 06:21] LABS: Hematocrit (blood only) 37.6 % (42-52); Immature Granulocytes # (auto) 0.01 K/uL (0.00-0.02); Immature Granulocytes % (auto) 0.2 %; Lymphocytes % (auto) 8.7 %; Mean Corpuscular Hemoglobin 31.7 pg (25-34); Mean Corpuscular Hgb Conc 34.6 g/dL (32-36); Mean Corpuscular Volume 91.7 fL (80-100); Mean Platelet Volume 9.3 fL (7.4-10.4); Monocytes # (auto) 0.41 K/uL (0.11-0.59); Monocytes % (auto) 7.2 %; Neutrophils % (auto) 83.9 %; Platelet Count 175 K/uL (130-400); RDW Coefficient of Variation 13.4 % (11.5-14.5); RDW Standard Deviation 44.9 fL (36.4-46.3); White Blood Count 5.72 K/uL (4.8-10.8)
[2020-06-28 07:03] LABS: Albumin Level 2.9 gm/dl (3.4-5.0); BUN Creatinine Ratio 28.6 (10-20); Calcium 8.6 mg/dl (8.5-10.1); Creatinine Clr Calc Pharmacy 61.4 ml/min; Est GFR (Non-African American) 49.2; Magnesium 2.1 mg/dl (1.8-2.4); Potassium 4.6 mmol/L (3.5-5.1)
[2020-06-28 07:06] LABS: Albumin Globulin Ratio 0.7 (0.9-2); Bilirubin,Total 0.6 mg/dl (0.2-1); Globulin 4.2 gm/dl (2.5-4.0); Total Protein 7.1 gm/dl (6.4-8.2)
[2020-06-28] MEDS: FLUTICASONE PROPIONATE NA SPR 16 GM BTL SCH (08:39)
[2020-06-28] MEDS: FLUTICASONE/VILANTEROL 200/25MCG 14 PUFFS/INHALER INH SCH (08:39)
[2020-06-28] MEDS: ENOXAPARIN INJ 40 MG/0.4 ML SYR SQ SCH (08:39)
[2020-06-28] MEDS: guaiFENesin 600 MG TABCR PO SCH (08:40)
[2020-06-28] MEDS: dexAMETHasone 6 MG in SYRINGE 0 ML IV SCH (08:45)
[2020-06-28] MEDS: METOPROLOL SUCC 50MG EXT REL TAB PO SCH (08:46)
[2020-06-28] MEDS ORDERED: ATORVASTATIN 10 MG TAB PO SCH (09:00)
[2020-06-28] MEDS: INSULIN ASPART 100 UNITS/ML 3 ML PEN SC SCH ×2 (09:00→12:30)
[2020-06-28] MEDS ORDERED: ALBUTEROL HFA 8 GM INHALER INH PRN (10:30)
--- NOTE | 2020-06-28 15:48 | Discharge Summary ---
Date of Service June 28, 2020 Admission HPI Per Admitting Provider 69yo male with history of nonischemic cardiomyopathy with EF 40-45%, asthma, HTN, T2DM, hyperlipidemia, and morbid obesity who presents from home with various symptoms dating back to about 06/14-06/15 or shortly thereafter. Since that time he has had worsening cough with sputum production, dyspnea at rest and with exertion, poor appetite, fatigue, and severe diarrhea. Latter has been present 3-4 times each day and for about 8 days straight. Stools are watery. His mouth is dry and he reports feeling thirsty. No nausea or emesis. No myalgias or arthralgias. is sick with cold/cough symptoms. She has not been tested for COVID. In the ER he was told his COVID-19 test was positive and feels that he may have been exposed to his nephew who made a visit to his home around 06/14 or 06/15. He and his have been sheltering in place for most of the pandemic and wearing masks faithfully. Principal Diagnosis COVID-19 Pneumonia, Hypoxia, Acute kidney injury, Hyponatremia, dehydration Discharge Exam Constitutional WD/WN, vitals as above + morbidly obese Eyes + anicteric sclerae Neck trachea midline, no thyromegaly Respiratory normal respiratory effort, lungs clear to auscultation Cardiovascular RRR, no murmur, no edema Chest (Breasts) Chest: normal inspection of chest Gastrointestinal (Abdomen) normal bowel sounds, soft, nontender, no hepatosplenomegaly Musculoskeletal Extremities: extremities normal to inspection; no cyanosis and no clubbing Skin no rashes, warm and dry Neurologic moves all extremities and awake; no focal motor deficits Psychiatric A+Ox3, euthymic affect Lymphatic no lymphedema Discharge Data Allergies Allergy/AdvReac Type Severity Reaction Status Date / Time aspirin AdvReac Mild REGULAR Verified 06/26/20 10:43 DOSE -> NOSEBLEED Consultations 06/26/20 11:30 ED Decision to Admit Stat Ordered Studies CXR Hospital Course (1) Pneumonia due to COVID-19 virus: Symptoms began on 06/15 Upon admission had pulse ox 91-92% in room air while in the ER and they quickly drop to upper 80s with minimal activity. Was tachypneic upon admission which is now resolved Radiographically he has significant COVID-19 pneumonia. MUCH improved. Was ambulating halls and POx 96%-9&% with exertion, feeling good. Diarrhea resolved and well enough to go home -Received convalescent plasma -continue decadron 6mg PO x 10-day course-last dose will be on 07/05 -Not a candidate for IV remdesivir as he is too far out from start of symptoms and had acute kidney injury -received pulmonary toilet with mucinex, albuterol scheduled q6h, and incentive cricket/flutter valve. Weaned off O2 -Procalcitonin is negative-no need for antibiotics (2) Acute hyponatremia: Sodium 122 on admission Clinically volume depleted from diarrhea from COVID along with ongoing HCTZ use at home. urine Na and urine Osm consistent with most likely dehydration but complicated by HCTZ use NS x 2 liters was given and sodium improved to 131 on day of discharge He is now drinking plenty of p.o. fluids and diarrhea has stopped Continue to hold HCTZ after discharge. Follow BMP in one week as outpt (3) Acute kidney injury: Creatinine down to 1.44 from 1.76 on admission after IV fluid hydration 2nd to volume depletion/diarrhea/poor oral intake vs COVID-19 itself vs ACEi and HCTZ use Follow BMP in 1 week remain off Dyazide but ok to restart lisinopril on dc (4) Asthma: No significant wheezing on exam continue albuterol prn Continue usual inhalers from home. Pulmonary toilet. (5) Chronic systolic (congestive) heart failure: EF 40-45% on most recent echo. Cont metoprolol and restart lisinopril on discharge I do not believe cxr findings are from CHF. (6) Nonischemic cardiomyopathy: Cath [address] Warren with normal coronaries. (7) Hypertension: Blood pressures improved, were low on admission holding Dyazide as above (8) Dyslipidemia: continue lipitor (9) Type 2 diabetes mellitus: held oral agents from home. was on Lantus due to hyprglycemia from Decadron-continue Lantus 10 units qhs x 1 week while on decadron-he knows how to administer insulin as he does it for his every day restart metformin on dc (10) Morbid obesity: BMI 43.5 Needs weight loss (11) Elevated AST (SGOT): Likely 2nd to COVID-19. Very minimally elevated (12) LBBB (left bundle branch block): Not due to CAD -- normal coronary arteries on heart cath 2017 at [facility]. (13) DVT prophylaxis: Due to high risk of VTE with COVID-19 will use higher dose prophylaxis -- lovenox 40mg BID. Disposition-much improved, dc to home today Total Time Total Time Spent Total Time Spent (In Minutes): 35 min Total Time Includes: Examination of the Patient, Discharge Planning and Medication Reconciliation Discharge Plan Discharge Items Patient Disposition: Home - Self-Care Reason For Visit: COVID 19, PNEMONIA, HYPONATREMIA Discharge Diagnosis: COVID-19 Pneumonia, Hyponatremia, Acute kidney injury, dehydration Condition on Discharge: Good Activity: As commented below Lifting: Gradually increase as tolerated Bathing: No limitations Exercise/Sports: Gradually increase as tolerated Non-emergency contact: Primary Care Provider Call non-emergency contact if: you have any medication questions, your symptoms worsen and you have a fever Follow-up/Referrals: Trevon Arellano, [Primary Care Provider] - (Follow up within 1-2 weeks ) Diet: Carb Consistent or DM2 Ambulatory Orders: Basic Metabolic Panel (Routine) Timeframe: 1 Week Location: Determined by Patient Ordered By: Joie Steiner Attending Provider Instructions: Please continue to stay hydrated. Do NOT take your HCTZ/Triamterene water pill for 1 week and have your blood work checked in 1 week to make sure your kidney function is completely back to normal. You will continue on the steroid pill for your COVID pneumonia for one more week. Since this makes your sugars high, you should stay on Lantus 10 units at bedtime for the next week also. Follow up with Dr. Arellano within 1-2 weeks. You should remain in quarantine at your house for at least 1 more week. Home Isolation COVID-19 Instructions The following information about Home Isolation is from the CDC Website: https://www.cdc.gov/coronavirus/2019-ncov/hcp/wbfnmtir-watszrn-jsulsn.html Stay home except to get medical care People who are mildly ill with COVID-19 are able to isolate at home during their illness. You should restrict activities outside your home, except for getting medical care. Do not go to work, school, or public areas. Avoid using public transportation, ride-sharing, or taxis. Separate yourself from other people and animals in your home People: As much as possible, you should stay in a specific room and away from other people in your home. Also, you should use a separate bathroom, if available. Animals: You should restrict contact with pets and other animals while you are sick with COVID-19, just like you would around other people. Although there have not been reports of pets or other animals becoming sick with COVID-19, it is still recommended that people sick with COVID-19 limit contact with animals until more information is known about the virus. When possible, have another member of your household care for your animals while you are sick. If you are sick with COVID-19, avoid contact with your pet, including petting, snuggling, being kissed or licked, and sharing food. If you must care for your pet or be around animals while you are sick, wash your hands before and after you interact with pets and wear a face mask. Call ahead before visiting your doctor If you have a medical appointment, call the healthcare provider and tell them that you have or may have COVID-19. This will help the healthcare providers office take steps to keep other people from getting infected or exposed. Wear a face mask You should wear a face mask when you are around other people (e.g., sharing a room or vehicle) or pets and before you enter a healthcare providers office. If you are not able to wear a face mask (for example, because it causes trouble breathing), then people who live with you should not stay in the same room with you, or they should wear a face mask if they enter your room. Cover your coughs and sneezes Cover your mouth and nose with a tissue when you cough or sneeze. Throw used tissues in a lined trash can. Immediately wash your hands with soap and water for at least 20 seconds or, if soap and water are not available, clean your hands with an alcohol-based hand bullet slug casting machine operator that contains at least 60% alcohol. Clean your hands often Wash your hands often with soap and water for at least 20 seconds, especially after blowing your nose, coughing, or sneezing; going to the bathroom; and before eating or preparing food. If soap and water are not readily available, use an alcohol-based hand bullet slug casting machine operator with at least 60% alcohol, covering all s urfaces of your hands and rubbing them together until they feel dry. Soap and water are the best option if hands are visibly dirty. Avoid touching your eyes, nose, and mouth with unwashed hands. Avoid sharing personal household items You should not share dishes, drinking glasses, cups, eating utensils, towels, or bedding with other people or pets in your home. After using these items, they should be washed thoroughly with soap and water. Clean all high-touch surfaces everyday High touch surfaces include counters, tabletops, doorknobs, bathroom fixtures, toilets, phones, keyboards, tablets, and bedside tables. Also, clean any surfaces that may have blood, stool, or body fluids on them. Use a household cleaning spray or wipe, according to the label instructions. Labels contain instructions for safe and effective use of the cleaning product including precautions you should take when applying the product, such as wearing gloves and making sure you have good ventilation during use of the product. Monitor your symptoms Seek prompt medical attention if your illness is worsening (e.g., difficulty breathing).Beforeseeking care, call your healthcare provider and tell them that you have, or are being evaluated for, COVID-19. Put on a face mask before you enter the facility. These steps will help the healthcare providers office to keep other people in the office or waiting room from getting infected or exposed. Ask your healthcare provider to call the local or [facility] health depart ment. Persons who are placed under active monitoring or facilitated self- monitoring should follow instructions provided by their local health department or occupational health professionals, as appropriate. When working with your local health department check their available hours. If you have a medical emergency and need to call 911, notify the dispatch personnel that you have, or are being evaluated for COVID-19. If possible, put on a face mask before emergency medical services arrive. Discontinuing home isolation Patients with confirmed COVID-19 should remain under home isolation precautions until the risk of secondary transmission to others is thought to be low. The decision to discontinue home isolation precautions should be made on a [id number] basis, in consultation with healthcare providers and [facility] and [facility] health departments. Pending Studies at Discharge: No Stand-Alone Forms: My [facility] Medications and DC Order Prescriptions: New Lantus Solostar U-100 Insulin 100 unit/mL (3 mL) Insulin Pen 10 unit SC HS 7 Days Qty: 3 RF: 0 dexamethasone [Decadron] 6 mg tablet 6 mg PO DAILY Qty: 7 RF: 0 Continued albuterol sulfate [ProAir HFA] 90 mcg/actuation HFA aerosol inhaler 2 puff INHALATION Q6H PRN (Reason: Shortness Of Breath) Qty: 8.5 RF: 5 fluticasone propion-salmeterol [Advair Diskus] 250-50 mcg/dose blister with device 1 inh INHALATION BID Qty: 60 RF: 5 metoprolol succinate 100 mg tablet extended release 24 hr 100 mg PO QAM Qty: 90 RF: 3 varicella-zoster gE vac,2 of 2 50 mcg suspension for reconstitution 0.5 ml IM .INJECT 0.5 ML Once A Qty: 0.5 RF: 0 cholecalciferol (vitamin D3) [Vitamin D3] 2,000 unit capsule 2,000 unit PO HS RF: 0 fluticasone propionate [Flonase Allergy Relief] 50 mcg/actuation spray,suspen samara 1 spray INTRANASAL QAM RF: 0 atorvastatin 10 mg tablet 10 mg PO QAM RF: 0 lisinopril 40 mg tablet 40 mg PO QAM RF: 0 metformin 750 mg tablet extended release 24 hr 750 mg PO QDD RF: 0 testosterone [AndroGel] 20.25 mg/1.25 gram (1.62 %) gel in metered-dose pump 2 pump TRANSDERMAL QAM RF: 0 magnesium 200 mg Tablet 400 mg PO QAM RF: 0 Changed colchicine 0.6 mg capsule 0.6 mg PO BID PRN (Reason: gout flare) Qty: 60 RF: 2 Discontinued triamterene-hydrochlorothiazid 75-50 mg tablet 0.5 tab PO QAM RF: 0 Discharge Orders: Discharge Order (Routine); Ordered 06/28/20 Ordered By: Joie Florian Admission Data Admit Date/Time: 06/26/20 12:25 Attending Provider: Joie Florian Admit Provider: Rafi Webber Primary Care Provider: Trevon Arellano Other Providers: Rafi Webber Coding Level of Care Code D/C Day Management >30 mins Diagnoses Pneumonia due to COVID-19 virus U07.1; J12.89 Acute hyponatremia E87.1 Acute kidney injury N17.9 Asthma J45.40 Asthma severity: moderate Asthma persistence: persistent Asthma complication type: unspecified Chronic systolic (congestive) heart failure I50.22 Nonischemic cardiomyopathy I42.8 Hypertension I10 Hypertension type: essential hypertension Dyslipidemia E78.5 Type 2 diabetes mellitus E11.9 Morbid obesity E66.01 Elevated AST (SGOT) R74.01 LBBB (left bundle branch block) I44.7 DVT prophylaxis Z29.9
== END 2020-06-28 16:16 | disposition home or self-care (01) | DRG 177 ==
LOC: ED 09:14 → 2S 12:25 → SUATTDRO 12:25 → 2S 15:00